=== PATIENT | female | born 1965 | race Caucasian/White ===

== ENCOUNTER 2023-12-20 06:45 | Day surgery (SDC) | payer MEDICAID, SELFPAY ==
[2023-12-20] VITALS (7 sets, daily range): BP systolic 83–119; BP diastolic 49–76; PULSE 58–76; RESP 16–18; TEMP 36.1–36.4; O2SAT 96–100; BMI 18.9
--- OUTSIDE RECORDS SUMMARY | 2023-12-20 06:49 | XMS RPT_ITS | CCD ---
Author Name Unknown Address [address] [place] [address] Organization [facility] Care Team Providers Care Maintenance Mechanic Engine Name Role Phone Rosmery Cisneros Unavailable Rosmery Cisneros Unavailable Unavailable Rosmery Cisneros Unavailable Unavailable Unavailable Unavailable Unavailable Dr. Rosmery Cisneros Attending Unavailab le Amelia, Dr. Rosmery Jones Referring Unavailab le Amelia, Dr. Rosmery Jones Primary Care Unavailab le Amelia, Dr. Rosmery Jones Attending Unavailab le Amelia, Dr. Rosmery Jones Referring Unavailab le Amelia, Dr. Rosmery Jones Primary Care Unavailab le Amelia, Dr. Rosmery Jones Primary Care Unavailab isac AGRAWAL, Dr. PRINCE WHITAKER Attending Debrava illeona Cisneros, Dr. Rosmery Jones Referring Unavailab le Amelia, Dr. Rosmery Jones Attending Unavailab le Amelia, Dr. Rosmery Jones Referring Unavailab le Amelia, Dr. Rosmery Jones Primary Care Unavailab le Amelia, Dr. Rosmery Jones Attending Unavailab le Amelia, Dr. Rosmery Jones Referring Unavailab le Amelia, Dr. Rosmery Jones Primary Care Unavailab isac AGRAWAL, Dr. PRINCE WHITAKER Attending Debrava illeona Cisneros, Dr. Rosmery Jones Primary Care Unavailab le Amelia, Dr. Rosmery Jones Attending Unavailab le Amelia, Dr. Rosmery Jones Referring Unavailab le Amelia, Dr. Rosmery Jones Primary Care Unavailab Rosmery Arce MD Primary Care Provider Rosmery Cisneros MD Primary Care Provider ROSMERY CISNEROS Attending Unavailable ROSMERY CISNEROS Referring Unavailable ROSMERY CISNEROS Primary Care Unavailable ROSMERY CISNEROS Attending Unavailable ROSMERY CISNEROS Primary Care Unavailable ROSMERY CISNEROS Attending Unavailable ROSMERY CISNEROS Primary Care Unavailable ROSMERY CISNEROS Attending Unavailable ROSMERY CISNEROS Referring Unavailable ROSMERY CISNEROS Primary Care Unavailable ROSMERY CISNEROS Attending Unavailable ROSMERY CISNEROS Primary Care Unavailable BRUNILDAAMADEO Referring Unavailable Allergies Allergy Classification Reported Allergen(s) Allergy Type Date of Onset Reaction(s) Facility Acetaminophen / oxyCODONE (4 sources) Acetaminophen / oxyCODONE; Translations: [Percocet TABS] Drug Allergy RQ-NZTC-Lngwev ke 201 Work Phone: (20 sources) Acetaminophen / oxyCODONE; Translations: [Percocet TABS] Drug Allergy [facility] (2 sources) Acetaminophen / oxyCODONE; Translations: [OXYCODONE-ACETAM INOPHEN] Drug Allergy 3 [facility] 3 Repository (1 source) chicken allergenic extract; Translations: [POULTRY] Drug Allergy 5 [facility] Repository (1 source) egg extract; Translations: [EGG] Drug Allergy 3 [facility] Repository (1 source) Shellfish; Translations: [SHELLFISH DERIVED] Propensity to adverse reactions to drug (disorder) 3 [facility] Repository (1 source) CHICKEN; Translations: [CHICKEN] Propensity to adverse reactions to food (disorder) 3 [facility] Repository Medications Current Medications Medication Drug Class(es) Dates Sig (Normalized) Sig (Original) [id number] 200 actuat albuterol 0.09 mg/actuat metered dose inhaler (20 sources) beta2-Adrenergic Agonist Start: 03-25-2023 take 2 puff(s) by inhalation every six hours for wheezing albuterol 90 mcg/actuation inhaler Indications: Routine general medical examination at a health care facility Inhale 2 puffs every 6 hours if needed for wheezing. 18 g 2 03/25/2023 Active Completed/Discontinued Medications Medication Drug Class(es) Dates Sig (Normalized) Sig (Original) azithromycin 250 mg oral tablet (4 sources) Macrolide Antimicrobial Start: 04-29-2022 Azithromycin 250 MG Oral Tablet TAKE 2 TABLETS ON DAY 1 THEN TAKE 1 TABLET A DAY FOR 4 DAYS. Quantity: 1 Refills: 0 Ordered: 29-Apr-2022 Rosmery Cisneros MD Start : 29-Apr-2022 Active betamethasone 1 mg/ml topical cream (20 sources) Corticosteroid Start: 04-29-2020 Betamethasone Valerate 0.1 % External Cream APPLY SPARINGLY TO AFFECTED AREA(S) TWICE DAILY Quantity: 1 Refills: 0 Ordered: 29-Apr-2020 Rosmery Cisneros MD Start : 29-Apr-2020 Active ciclopirox 80 mg/ml topical solution (11 sources) Start: 01-25-2022 Ciclopirox 8 % External Solution Apply to affected nail bed(s) and adjacent skin daily. Remove with alcohol every 7 days. Quantity: 1 Refills: 2 Ordered: 24-Dec-2022 Rosmery Cisneros MD Start : 25-Jan-2022 Active Problems Active Problems Problem Classification Problem Date Documented Date Episodic/Chronic Abdominal pain (18 sources) Right upper quadrant pain; Translations: [Abdominal pain, right upper quadrant] Episodic Anxiety disorders (20 sources) Mixed anxiety and depressive disorder; Translations: [Anxiety state, unspecified] Onset: 12-17-2022 Resolved: 01-28-2023 05-06-2023 Chronic Attention-deficit conduct and disruptive behavior disorders (20 sources) Attention deficit hyperactivity disorder, predominantly inattentive type; Translations: [Attention deficit disorder without mention of hyperactivity] Onset: 12-17-2022 05-06-2023 Chronic Attention-deficit, conduct, and disruptive behavior disorders (4 sources) Attention-deficit hyperactivity disorder, predominantly inattentive type; Translations: [Attention-deficit hyperactivity disorder, predominantly inattentive type] Onset: 12-17-2022 Chronic Calculus of urinary tract (20 sources) Calculus of kidney; Translations: [Recurrent kidney stone] Episodic Diseases of mouth; excluding dental (3 sources) Xerostomia; Translations: [Dry mouth, unspecified] Onset: 11-18-2023 11-18-2023 Episodic Disorders of lipid metabolism (20 sources) Hyperlipidemia; Translations: [Other and unspecified hyperlipidemia] Onset: 12-17-2022 12-17-2022 Chronic Esophageal disorders (20 sources) Gastroesophageal reflux disease; Translations: [Esophageal reflux] Onset: 12-17-2022 12-17-2022 Chronic Malaise and fatigue (3 sources) Fatigue; Translations: [Other fatigue] Onset: 11-18-2023 11-18-2023 Episodic Miscellaneous mental health disorders (7 sources) Primary insomnia; Translations: [Primary insomnia] Onset: 12-17-2022 05-06-2023 Chronic Mood disorders (20 sources) Bipolar disorder; Translations: [Bipolar disorder, unspecified] Onset: 12-17-2022 12-17-2022 Chronic Mycoses (3 sources) Onychomycosis; Translations: [Dermatophytosis of nail] Episodic Other aftercare (20 sources) Drug therapy finding; Translations: [Long-term (current) use of other medications] Episodic Other aftercare (1 source) Taking high risk medication; Translations: [Other watermaster (current) drug therapy] 11-03-2023 Episodic Other aftercare (2 sources) Other halfway (current) drug therapy; Translations: [Other watermaster (current) drug therapy] Onset: 11-03-2023 Episodic Other lower respiratory disease (3 sources) Chronic cough; Translations: [Chronic cough] Onset: 11-18-2023 11-18-2023 Episodic Other nervous system disorders (20 sources) Carpal tunnel syndrome; Translations: [Carpal tunnel syndrome] Onset: 12-17-2022 12-17-2022 Chronic Other nervous system disorders (20 sources) Paresthesia; Translations: [Disturbance of skin sensation] Episodic Other non-traumatic joint disorders (1 source) Joint pain; Translations: [Pain in unspecified joint] 11-18-2023 Episodic Other non-traumatic joint disorders (2 sources) Pain in unspecified joint; Translations: [Pain in unspecified joint] Onset: 11-18-2023 Episodic Other nutritional; endocrine; and metabolic disorders (1 source) Weight loss; Translations: [Abnormal weight loss] 11-18-2023 Episodic Other nutritional; endocrine; and metabolic disorders (3 sources) Abnormal weight loss; Translations: [Abnormal weight loss] Onset: 11-18-2023 Episodic Other screening for suspected conditions (not mental disorders or infectious disease) (20 sources) Patient encounter status; Translations: [Other screening mammogram] Onset: 08-04-2023 08-04-2023 Episodic Other upper respiratory infections (20 sources) Acute pharyngitis; Translations: [Acute pharyngitis] Onset: 11-18-2023 11-18-2023 Episodic Past or Other Problems Problem Classification Problem Date Documented Da te Episodic/Chronic Acute bronchitis (14 sources) Acute bronchitis; Translations: [Acute bronchitis] Onset: 12-17-2022 Resolved: 01-28-2023 01-28-2023 Episodic Allergic reactions (20 sources) Contact dermatitis; Translations: [Contact dermatitis and other eczema, unspecified cause] Onset: 12-17-2022 12-17-2022 Episodic Other lower respiratory disease (20 sources) Multiple nodules of lung; Translations: [Other nonspecific abnormal finding of lung field] Onset: 12-17-2022 12-17-2022 Episodic Residual codes; unclassified (20 sources) Insomnia; Translations: [Insomnia, unspecified] Onset: 12-17-2022 12-17-2022 Episodic Residual codes; unclassified (2 sources) Insomnia, unspecified; Translations: [Insomnia, unspecified] Onset: 12-17-2022 Episodic Unclassified (4 sources) Drug therapy finding; Translations: [High risk medication use] Unclassified (3 sources) Onset: 08-04-2023 08-04-2023 Viral infection (8 sources) Disease caused by 2019-nCoV; Translations: [Other specified viral infection] Onset: 12-17-2022 Resolved: 01-28-2023 01-28-2023 Episodic NEGATED: Highlighted row has not occurred!Residual codes; unclassified (20 sources) Disease Episodic Results Test Name Value Interpretation Reference Range Facil ity Vital Signs Date Time Vital Sign Value Performing Clinician Facility 11-18-2023 14:02-0500 Body height 165.1 cm Rosmery Cisneros MD Work Phone: [facility] 11-18-2023 14:02-0500 Body mass index (BMI) [Ratio] 19.85 kg/m2 Rosmery Cisneros MD Work Phone: [facility] 11-18-2023 14:02-0500 Body temperature 96.49 [degF] Rosmery Cisneros MD Work Phone: [facility] 11-18-2023 14:02-0500 Body weight 54.11 kg Rosmery Cisneros MD Work Phone: [facility] 11-18-2023 14:02-0500 Diastolic blood pressure 70 mm[Hg] Rosmery Cisneros MD Work Phone: [facility] 11-18-2023 14:02-0500 Heart rate 72 /min Rosmery Cisneros MD Work Phone: [facility] 11-18-2023 14:02-0500 Respiratory rate 16 /min Rosmery Cisneors MD Work Phone: [facility] 11-18-2023 14:02-0500 Systolic blood pressure 126 mm[Hg] Rosmery Cisneros MD Work Phone: [facility] 11-03-2023 08:49-0500 Body height 165.1 cm Rosmery Cisneros MD Work Phone: [facility] 11-03-2023 08:49-0500 Body mass index (BMI) [Ratio] 20.1 kg/m2 Rosmery Cisneros MD Work Phone: [facility] 11-03-2023 08:49-0500 Body temperature 97.7 [degF] Rosmery Cisneros MD Work Phone: [facility] 11-03-2023 08:49-0500 Body weight 54.8 kg Rosmery Cisneros MD Work Phone: [facility] 11-03-2023 08:49-0500 Diastolic blood pressure 74 mm[Hg] Rosmery Cisneros MD Work Phone: [facility] 11-03-2023 08:49-0500 Heart rate 74 /min Rosmery Cisneros MD Work Phone: [facility] 11-03-2023 08:49-0500 Respiratory rate 16 /min Rosmery Cisneros MD Work Phone: [facility] 11-03-2023 08:49-0500 Systolic blood pressure 122 mm[Hg] Rosmery Cisneros MD Work Phone: [facility] 08-04-2023 08:25-0400 Body height 165.1 cm Rosmery Cisneros MD Work Phone: [facility] 08-04-2023 08:25-0400 Body mass index (BMI) [Ratio] 22.8 kg/m2 Rosmery Cisneros MD Work Phone: [facility] 08-04-2023 08:25-0400 Body temperature 97.7 [degF] Rosmery Cisneros MD Work Phone: [facility] 08-04-2023 08:25-0400 Body weight 62.14 kg Rosmery Cisneros MD Work Phone: [facility] 08-04-2023 08:25-0400 Diastolic blood pressure 76 mm[Hg] Rosmery Cisneros MD Work Phone: [facility] 08-04-2023 08:25-0400 Heart rate 66 /min Rosmery Cisneros MD Work Phone: [facility] 08-04-2023 08:25-0400 Respiratory rate 16 /min Rosmery Cisneros MD Work Phone: [facility] 08-04-2023 08:25-0400 Systolic blood pressure 124 mm[Hg] Rosmery Cisneros MD Work Phone: [facility] 05-06-2023 08:31-0400 Body height 165.1 cm Rosmery Cisneros MD Work Phone: [facility] 05-06-2023 08:31-0400 Body mass index (BMI) [Ratio] 21.93 kg/m2 Rosmery Cisneros MD Work Phone: [facility] 05-06-2023 08:31-0400 Body temperature 96.21 [degF] Rosmery Cisneros MD Work Phone: [facility] 05-06-2023 08:31-0400 Body weight 59.78 kg Rosmery Cisneros MD Work Phone: [facility] 05-06-2023 08:31-0400 Diastolic blood pressure 66 mm[Hg] Rosmery Cisneros MD Work Phone: [facility] 05-06-2023 08:31-0400 Heart rate 60 /min Rosmery Cisneros MD Work Phone: [facility] 05-06-2023 08:31-0400 Respiratory rate 16 /min Rosmery Cisneros MD Work Phone: [facility] 05-06-2023 08:31-0400 Systolic blood pressure 124 mm[Hg] Rosmery Cisneros MD Work Phone: [facility] 10-28-2022 08:07-0500 Body height 167.64 cm Rosmery Cisneros Work Phone: GL-WNTF-Hgnsnpaf 201 Work Phone: 10-28-2022 08:07-0500 Body mass index (BMI) [Ratio] 21.67 kg/m2 Rosmery Robert Cisneros Work Phone: XI-WDVW-Uttlslmy 201 Work Phone: 10-28-2022 08:07-0500 Body surface area Derived from formula 1.69 m2 Rosmery Cisnreos Work Phone: BD-MUIJ-Btwwkqpd 201 Work Phone: 10-28-2022 08:07-0500 Body temperature 96.8 [degF] Rosmery Cisneros Work Phone: RA-IQOL-Uxfjwxfb 201 Work Phone: 10-28-2022 08:07-0500 Body weight 60.9 kg Rosmery Marinsky Work Phone: FT-GUKF-Rzyalbaf 201 Work Phone: 10-28-2022 08:07-0500 Diastolic blood pressure 90 mm[Hg] Rosmery Jones [employer] Work Phone: OJ-UYQQ-Pnvmljxf 201 Work Phone: 10-28-2022 08:07-0500 Heart rate 88 /min Rosmery Marinsky Work Phone: AG-PXRR-Nlslwqho 201 Work Phone: 10-28-2022 08:07-0500 Respiratory rate 18 /min Rosmery Marinsky Work Phone: HY-DYLE-Dqikhpgr 201 Work Phone: 10-28-2022 08:07-0500 Systolic blood pressure 150 mm[Hg] Rosmery Marinsky Work Phone: XU-VMKM-Atjmsptq 201 Work Phone: 07-29-2022 08:43-0400 Diastolic blood pressure 70 mm[Hg] Rosmery Marinsky Work Phone: JA-RVLH-Rhqxkuhf 201 Work Phone: 07-29-2022 08:43-0400 Systolic blood pressure 120 mm[Hg] Rosmery Marinsky Work Phone: FR-FQBD-Cszdkjyz 201 Work Phone: 07-29-2022 08:28-0400 Body height 167.64 cm Rosmery Marinsky Work Phone: FS-ACRJ-Uvdsumzm 201 Work Phone: 07-29-2022 08:28-0400 Body mass index (BMI) [Ratio] 21.33 kg/m2 Rosmery Cisneros Work Phone: YK-HGEK-Xrohocjb 201 Work Phone: 07-29-2022 08:28-0400 Body surface area Derived from formula 1.68 m2 Rosmery Cisneros Work Phone: MF-IPKD-Yjzwmqdb 201 Work Phone: 07-29-2022 08:28-0400 Body temperature 97.3 [degF] Rosmery Cisneros Work Phone: KS-LCYW-Dvdgtcol 201 Work Phone: 07-29-2022 08:28-0400 Body weight 59.93 kg Rosmery Cisneros Work Phone: DE-FGKY-Dwnbbokl 201 Work Phone: 07-29-2022 08:28-0400 Diastolic blood pressure 80 mm[Hg] Rosmery Cisneros Work Phone: QH-WGYL-Ezqefnjd 201 Work Phone: 07-29-2022 08:28-0400 Heart rate 72 /min Rosmery Cisneros Work Phone: BB-KAXR-Sukyfcgf 201 Work Phone: 07-29-2022 08:28-0400 Respiratory rate 18 /min Rosmery Cisneros Work Phone: WD-KWOT-Rjlynwqn 201 Work Phone: 07-29-2022 08:28-0400 Systolic blood pressure 160 mm[Hg] Rosmery Cisneros Work Phone: LB-VKEO-Wvxjpzwh 201 Work Phone: 04-29-2022 08:32-0400 Heart rate 59 /min Rosmery Noyolay Work Phone: CF-NTON-Arnmvwyk 201 Work Phone: 04-29-2022 08:32-0400 SaO2% (BldA) [Mass fraction] 98 % Rosmery Cisneros Work Phone: JL-DMDG-Yqoisxyx 201 Work Phone: 04-29-2022 08:11-0400 Body height 167.64 cm Rosmery Cisneros Work Phone: MZ-HJYE-Ncldwwsr 201 Work Phone: 04-29-2022 08:11-0400 Body mass index (BMI) [Ratio] 21.02 kg/m2 Rosmery Cisneros Work Phone: RF-UIPH-Aallufcq 201 Work Phone: 04-29-2022 08:11-0400 Body surface area Derived from formula 1.67 m2 Rosmery Cisneros Work Phone: CE-HYGV-Tvnpnsrf 201 Work Phone: 04-29-2022 08:11-0400 Body temperature 98 [degF] Rosmery Cisneros Work Phone: DF-SFVC-Ellhqwdx 201 Work Phone: 04-29-2022 08:11-0400 Body weight 59.08 kg Rosmery Cisneros Work Phone: AA-RAAL-Klkuuzkg 201 Work Phone: 04-29-2022 08:11-0400 Diastolic blood pressure 74 mm[Hg] Rosmery Cisneros Work Phone: CT-FRRU-Fptgfbkz 201 Work Phone: 04-29-2022 08:11-0400 Heart rate 72 /min Rosmery Cisneros Work Phone: ZJ-MBUD-Vktmjcpo 201 Work Phone: 04-29-2022 08:11-0400 Respiratory rate 16 /min Rosmery Cisneros Work Phone: MP-BOPU-Veiwajbc 201 Work Phone: 04-29-2022 08:11-0400 Systolic blood pressure 128 mm[Hg] Rosmery Cisneros Work Phone: SD-CTRD-Pptpuzwd 201 Work Phone: 10-28-2021 10:33-0500 Systolic blood pressure 124 mm[Hg] Rosmery Cisneros Work Phone: QS-JXVB-Xccaldrc 201 Work Phone: 10-27-2021 09:39-0500 Body height 167.64 cm Rosmery Cisneros Work Phone: XJ-WZDJ-Fsqvwuai 201 Work Phone: 10-27-2021 09:39-0500 Body mass index (BMI) [Ratio] 22.03 kg/m2 Rosmery Cisneros Work Phone: GE-OZHW-Zzspwhhf 201 Work Phone: 10-27-2021 09:39-0500 Body surface area Derived from formula 1.7 m2 Rosmery Cisneros Work Phone: LF-RIIJ-Utprnroq 201 Work Phone: 10-27-2021 09:39-0500 Body temperature 97.1 [degF] Rosmery Cisneros Work Phone: EB-KLJY-Pfaxpjgf 201 Work Phone: 10-27-2021 09:39-0500 Body weight 61.92 kg Rosmery Cisneros Work Phone: KY-REGT-Uwvbytzd 201 Work Phone: 10-27-2021 09:39-0500 Diastolic blood pressure 76 mm[Hg] Rosmery Cisneros Work Phone: SL-CKHU-Uhtnomtg 201 Work Phone: 10-27-2021 09:39-0500 Heart rate 76 /min Rosmery Cisneros Work Phone: FF-UHCQ-Lncmsumv 201 Work Phone: 10-27-2021 09:39-0500 Respiratory rate 16 /min Rosmery Cisneros Work Phone: LS-GXOF-Vtiltilz 201 Work Phone: 10-27-2021 09:39-0500 Systolic blood pressure 124 mm[Hg] Rosmery Cisneros Work Phone: KZ-TKMG-Slmtocmx 201 Work Phone: 05-29-2021 09:28-0400 Body height 167.64 cm Rosmery Cisneros Work Phone: KB-JXYL-Gutaxpbw 201 Work Phone: 05-29-2021 09:28-0400 Body mass index (BMI) [Ratio] 21.35 kg/m2 Rosmery Cisneros Work Phone: LL-DGOG-Rrbmedkt 201 Work Phone: 05-29-2021 09:28-0400 Body surface area Derived from formula 1.68 m2 Rosmery Cisneros Work Phone: BE-XSFB-Zjeoaggc 201 Work Phone: 05-29-2021 09:28-0400 Body temperature 97.3 [degF] Rosmery Cisneros Work Phone: WJ-ZCUF-Bvmvuffk 201 Work Phone: 05-29-2021 09:28-0400 Body weight 59.99 kg Rosmery Cisneros Work Phone: XE-YVRW-Ebifvpzg 201 Work Phone: 05-29-2021 09:28-0400 Diastolic blood pressure 76 mm[Hg] Rosmery Cisneros Work Phone: YC-YRUV-Uucwuwcd 201 Work Phone: 05-29-2021 09:28-0400 Heart rate 80 /min Rosmery Cisneros Work Phone: QH-DAYT-Wkgvxovl 201 Work Phone: 05-29-2021 09:28-0400 Respiratory rate 18 /min Rosmery Cisneros Work Phone: KH-JYML-Erstykpj 201 Work Phone: 05-29-2021 09:28-0400 Systolic blood pressure 130 mm[Hg] Rosmery Cisneros Work Phone: NP-CJHF-Gnrwthwz 201 Work Phone: 10-14-2020 10:34-0500 BMI (Body Mass Index) 22.33 kg/m2 Rosmery Cisneros XE-HAAJ-Eghdpyxz 201 Work Phone: 10-14-2020 10:34-0500 Body Temperature 97.6 [degF] Rosmery Cisneros JT-HHSV-Yvdwxjy e 201 Work Phone: Encounters Encounter Date Encounter Type Care Provider Facility Start: 12-14-2023 End: 12-14-2023 ambulatory [facility] Facility:[facility] Start: 11-18-2023 End: 11-18-2023 ambulatory ROSMERY Jones [facility] Start: 11-18-2023 End: 11-18-2023 Office outpatient visit 15 minutes Rosmery Cisneros MD Work Phone: [facility] Primary Care Procedures Date Procedure Procedure Detail Performing Clinician Start: 11-03-2023 SCREEN OPIATE/OPIOID /BENZO PRESCRIPTION COMPLIANCE ROSMERY CISNEROS Start: 11-03-2023 OPIATE/OPIOID/BENZO PRESCRIPTION COMPLIANCE ROSMERY CISNEROS Start: 11-03-2023 FOLLOW UP IN [facility] PRIMARY CARE - PCP ROSMERY CISNEROS Start: 05-06-2023 FOLLOW UP IN ADVANCE D PRIMARY CARE - PCP ROSMERY CISNEROS Start: 12-04-2021 End: 12-04-2021 Colonoscopy Rosmery Cisneros Work Phone: Start: 10-27-2021 Lipid 1996 panel - S georgiana or Plasma Rosmery Cisneros MD Work Phone: Start: 06-05-2021 Mammography Rosmery merchant MD Work Phone: Start: 02-04-2014 Microscopic observat ion [Identifier] in Cervix by Cyto stain Rosmery Cisneros MD Work Phone: Mouth and face operations Pa Cisneros Plan of Treatment Date Care Activity Detail Author Start: 12-04-2031 Screening for malignant neoplasm of colon [facility] Start: 10-27-2026 Lipid panel Lipid Panel [facility] Start: 01-31-2024 End: 01-31-2024 Patient encounter procedure 01/31/2024 9:00 AM EDT Office Visit [facility] [address] [facility] [address] [place] [id number] Shubham Rg, BLOOD BANK BUSINESS MANAGER-INSPECTOR TOOL [address] [facility] [address] [place] [address] [facility] Start: 11-18-2023 End: 05-18-2024 25-hydroxyvitamin D3 [Mass/volume] in Serum or Plasma Vitamin D 25-Hydroxy,Total (for eval of Vitamin D levels) Lab Routine Arthralgia, unspecified joint Expected: 11/18/2023 (Approximate), Expires: 05/18/2024 [facility] Work Phone: Immunizations Immunization Date Immunization Notes Care Provider Fa cility 03-21-2021 Moderna COVID-19 Vaccine 100 MCG/0.5ML Intramuscular Suspension Rosmery Cisneros Work Phone: [facility] 02-21-2021 Moderna COVID-19 Vaccine 100 MCG/0.5ML Intramuscular Suspension Rosmery Cisneros Work Phone: [facility] 05-04-2016 hepatitis A vaccine, adult dosage; Translations: [Hepatitis A, adult] Rosmery Cisneros AM-QYAJ-Rqatvpiz Work Phone: Payers Date Payer Category Payer Unknown [id number] 2022 Unknown 2022 Unknown [id number] 1965 Unknown [id number] 2.16. [id number] 1965 Unknown [id number] 2.16. [id number] 1963 Unknown [id number] 2.16. [id number] 1963 Unknown [id number] 2.16. [id number] 1965 Unknown [id number] 2.16. [id number] 1963 Unknown [id number] 2.16. [id number] 1965 Unknown [id number] 2.16. [id number] 1963 Unknown [id number] 2.16.8 [id number] 1963 Unknown [id number] 2.16.84 [id number] 1963 Unknown [id number] 1965 Unknown [id number] 2.16.8 [id number] 1965 Unknown [id number] 2.16.8 [id number] Social History Date Type Detail Facility Start: 05-06-2023 End: 11-03-2023 Occasional alcohol use Occasional alcohol use DJ-VUYW-Zmntnw ke 201 Work Phone: Functional Status Date Assessment Result Facility NEGATED: Highlighted row Functional performance Functional status health issues are not documented Disease DL-TIMB-Zewziyoi 201 Work Phone: Mental Status Date Assessment Result Facility NEGATED: Highlighted row Cognitive function [Interpretation] Cognitive status health issues are not documented Disease OB-EWDL-Fzzfdlzv 201 Work Phone: Clinical Notes 10-14-2020 to 11-18-2023 Rosmery Cisneros MD - 11/18/2023 1:30 PM Farhan Cisneros MD - 11/03/2023 8:30 AM Farhan Cisneros MD - 08/04/2023 8:20 AM EDTMconsuelo Cisneros MD - 05/06/2023 8:20 AM EDT Note Date & Type Note Facility 11-18-2023 History of Present illness Narrative Subjective Patient ID: Julianna Dan is a 58 y.o. female who presents for hands cold dry eyes ?Sjogren's Weight loss 20 pounds in 6 weeks eating less amount due to throat is hurting and hurts to swallow last 7-8 weeks Having some heartburn Saw combination man who took off lesion Electric pain upper back and lower back Stopped drink 7-8 months ago Has had a headache for 2 years dry mouth joints pain knees ankles wrists hands Hx cyst ovary removed on right Had abscess right groin lanced it herself front mouth sore Review of Systems Objective BP 126/70 Pulse 72 Temp 35.8 C (96.5 F) (Temporal) Resp 16 Ht 1.651 m (5' 5 ) Wt 54.1 kg (119 lb 4.8 oz) BMI 19.85 kg/m Physical Exam Vitals and nursing note reviewed. Constitutional: General: She is not in acute distress. Appearance: She is not ill-appearing. HENT: Head: Normocephalic and atraumatic. Mouth/Throat: Mouth: Mucous membranes are moist. Pharynx: No oropharyngeal exudate or posterior oropharyngeal erythema. Eyes: Conjunctiva/sclera: Conjunctivae normal. Cardiovascular: Rate and Rhythm: Normal rate and regular rhythm. Heart sounds: Normal heart sounds. Pulmonary: Effort: Pulmonary effort is normal. Breath sounds: Normal breath sounds. Skin: General: Skin is warm. Neurological: Mental Status: She is alert. Psychiatric: Mood and Affect: Mood normal. Thought Content: Thought content normal. Judgment: Judgment normal. Assessment/Plan Problem List Items Addressed This Visit ICD-10-CM GERD (gastroesophageal reflux disease) K21.9 Relevant Orders Referral to Gastroenterology Other Visit Diagnoses Codes Weight loss - Primary R63.4 Relevant Orders CBC Comprehensive Metabolic Panel TSH with reflex to Free T4 if abnormal Arthralgia, unspecified joint M25.50 Relevant Orders JANET without Reflex TANK Citrulline Antibody, IgG C-Reactive Protein Rheumatoid Factor Sedimentation Rate Vitamin D 25-Hydroxy,Total (for eval of Vitamin D levels) Fatigue, unspecified type R53.83 Relevant Orders Vitamin B12 Folate Dry mouth R68.2 Relevant Orders Anti-SSA Anti-SSB Sore throat J02.9 Relevant Orders Referral to ENT Chronic cough R05.3 Relevant Orders XR chest 2 views documented in this encounter [facility] Work Phone: 11-03-2023 History of Present illness Narrative Subjective Patient ID: Julianna Dan is a 58 y.o. female who presents for ADHD (Patient here for med refills of her Adderall. Patient is due for a Tox screen, CSA was 05/06/23 Patient states has not taken the Adderall for 2 months. She feels she is doing ok without the medication. ) and Med Refill (Patient needs Xanax and Ambien scripts as well. Due for Tox. CSA was .. ). Stopped Adderall 2 months and is doing well not taking Xanax as much changed diet and lost weight OARRS: Rsomery Cisneros MD on 11/03/2023 8:38 AM I have personally reviewed the OARRS report for Julianna Dan. I have considered the risks of abuse, dependence, addiction and diversion Is the patient prescribed a combination of a benzodiazepine and opioid? No Last Urine Drug Screen / ordered today: Yes No results found for this or any previous visit (from the past 8760 hour(s)). Results are as expected. Clinical rationale for not completing a Urine Drug Screen: done Controlled Substance Agreement: Date of the Last Agreement: 04/2023 Reviewed Controlled Substance Agreement including but not limited to the benefits, risks, and alternatives to treatment with a Controlled Substance medication(s). Benzodiazepines: What is the patient's goal of therapy? anxiety Is this being achieved with current treatment? yes GAVIOTA-7: Over the last 2 weeks, how often have you been bothered by any of the following problems? Feeling nervous, anxious, or on edge: 1 Not being able to stop or control worryin Worrying too much about different things: 2 Trouble relaxin Being so restless that it is hard to sit still: 1 Becoming easily annoyed or irritable: 0 Feeling afraid as if something awful might happen: 0 GAVIOTA-7 Total Score: 8 Activities of Daily Living: Is your overall impression that this patient is benefiting (symptom reduction outweighs side effects) from benzodiazepine therapy? Yes 1. Physical Functioning: Better 2. Family Relationship: Better 3. Social Relationship: Better 4. Mood: Better 5. Sleep Patterns: Better 6. Overall Function: Better and Sleep Aids: What is the patient's goal of therapy? slepp Is this being achieved with current treatment? yes Activities of Daily Living: Is your overall impression that this patient is benefiting (symptom reduction outweighs side effects) from sleep aid therapy? Yes 1. Physical Functioning: Better 2. Family Relationship: Better 3. Social Relationship: Better 4. Mood: Better 5. Sleep Patterns: Better 6. Overall Function: Better Review of Systems Objective BP 122/74 Pulse 74 Temp 36.5 C (97.7 F) Resp 16 Ht 1.651 m (5' 5 ) Wt 54.8 kg (120 lb 12.8 oz) BMI 20.10 kg/m Physical Exam Vitals and nursing note reviewed. Constitutional: General: She is not in acute distress. Appearance: She is not ill-appearing. HENT: Head: Normocephalic and atraumatic. Mouth/Throat: Mouth: Mucous membranes are moist. Eyes: Conjunctiva/sclera: Conjunctivae normal. Cardiovascular: Rate and Rhythm: Normal rate and regular rhythm. Heart sounds: Normal heart sounds. Pulmonary: Effort: Pulmonary effort is normal. Breath sounds: Normal breath sounds. Skin: General: Skin is warm. Neurological: Mental Status: She is alert. Psychiatric: Mood and Affect: Mood normal. Thought Content: Thought content normal. Judgment: Judgment normal. Assessment/Plan Problem List Items Addressed This Visit ICD-10-CM ADHD, predominantly inattentive type F90.0 GERD (gastroesophageal reflux disease) K21.9 Relevant Medications pantoprazole (ProtoNix) 40 mg EC tablet Hyperlipidemia E78.5 Relevant Medications atorvastatin (Lipitor) 10 mg tablet Other Relevant Orders Lipid Panel CBC Comprehensive Metabolic Panel Insomnia G47.00 Relevant Medications zolpidem (Ambien) 10 mg tablet Anxiety - Primary F41.9 Relevant Medications ALPRAZolam (Xanax) 0.5 mg tablet documented in this encounter [facility] Work Phone: 08-04-2023 History of Present illness Narrative Subjective Patient ID: Julianna Dan is a 58 y.o. female who presents for Med Refill (Patient here for 3 month refills of her Xanax, Ambien, Adderall. Last Tox screen was 10-28-22 and CSA was 05/06/23). HPI OARRS: Rosmery Cisneros MD on 08/04/2023 8:36 AM I have personally reviewed the OARRS report for Julianan Dan. I have considered the risks of abuse, dependence, addiction and diversion Is the patient prescribed a combination of a benzodiazepine and opioid? No Last Urine Drug Screen / ordered today: No Recent Results (from the past 8760 hour(s)) Amphetamine Confirm, Urine Collection Time: 10/28/22 12:00 AM Result Value Ref Range Amphetamines,Urine >5000 ng/mL MDA, Urine <200 ng/mL MDEA, Urine <200 ng/mL MDMA, Urine <200 ng/mL Methamphetamine Quant, Ur <200 ng/mL Phentermine,Urine <200 ng/mL OPIATE/OPIOID/BENZO PRESCRIPTION COMPLIANCE Collection Time: 10/28/22 12:00 AM Result Value Ref Range DRUG SCREEN COMMENT URINE SEE BELOW Creatine, Urine 242.1 mg/dL Amphetamine Screen, Urine PRESUMPTIVE POSITIVE (A) NEGATIVE Barbiturate Screen, Urine PRESUMPTIVE NEGATIVE NEGATIVE Cannabinoid Screen, Urine PRESUMPTIVE NEGATIVE NEGATIVE Cocaine Screen, Urine PRESUMPTIVE NEGATIVE NEGATIVE PCP Screen, Urine PRESUMPTIVE NEGATIVE NEGATIVE 7-Aminoclonazepam <25 Cutoff <25 ng/mL Alpha-Hydroxyalprazolam 812 (A) Cutoff <25 ng/mL Alpha-Hydroxymidazolam <25 Cutoff <25 ng/mL Alprazolam 109 (A) Cutoff <25 ng/mL Chlordiazepoxide <25 Cutoff <25 ng/mL Clonazepam <25 Cutoff <25 ng/mL Diazepam <25 Cutoff <25 ng/mL Lorazepam <25 Cutoff <25 ng/mL Midazolam <25 Cutoff <25 ng/mL Nordiazepam <25 Cutoff <25 ng/mL Oxazepam <25 Cutoff <25 ng/mL Temazepam <25 Cutoff <25 ng/mL Zolpidem 93 (A) Cutoff <25 ng/mL Zolpidem Metabolite (ZCA) >1000 (A) Cutoff <25 ng/mL 6-Acetylmorphine <25 Cutoff <25 ng/mL Codeine <50 Cutoff <50 ng/mL Hydrocodone <25 Cutoff <25 ng/mL Hydromorphone <25 Cutoff <25 ng/mL Morphine Urine <50 Cutoff <50 ng/mL Norhydrocodone <25 Cutoff <25 ng/mL Noroxycodone <25 Cutoff <25 ng/mL Oxycodone <25 Cutoff <25 ng/mL Oxymorphone <25 Cutoff <25 ng/mL Tramadol <50 Cutoff <50 ng/mL O-Desmethyltramadol <50 Cutoff <50 ng/mL Fentanyl <2.5 Cutoff<2.5 ng/mL Norfentanyl <2.5 Cutoff<2.5 ng/mL METHADONE CONFIRMATION,URINE <25 Cutoff <25 ng/mL EDDP <25 Cutoff <25 ng/mL Results are as expected. Controlled Substance Agreement: Date of the Last Agreement: April 2023 Reviewed Controlled Substance Agreement including but not limited to the benefits, risks, and alternatives to treatment with a Controlled Substance medication(s). Benzodiazepines: What is the patient's goal of therapy? anxiety Is this being achieved with current treatment? yes GAVIOTA-7: Over the last 2 weeks, how often have you been bothered by any of the following problems? Feeling nervous, anxious, or on edge: 2 Not being able to stop or control worryin Worrying too much about different things: 2 Trouble relaxin Being so restless that it is hard to sit still: 1 Becoming easily annoyed or irritable: 2 Feeling afraid as if something awful might happen: 0 GAVIOTA-7 Total Score: 10 Activities of Daily Living: Is your overall impression that this patient is benefiting (symptom reduction outweighs side effects) from benzodiazepine therapy? Yes 1. Physical Functioning: Better 2. Family Relationship: Better 3. Social Relationship: Better 4. Mood: Better 5. Sleep Patterns: Better 6. Overall Function: Better, Stimulants: What is the patient's goal of therapy? concentration Is this being achieved with current treatment? yes Activities of Daily Living: Is your overall impression that this patient is benefiting (symptom reduction outweighs side effects) from stimulant therapy? Yes 1. Physical Functioning: Better 2. Family Relationship: Better 3. Social Relationship: Better 4. Mood: Better 5. Sleep Patterns: Better 6. Overall Function: Better , and Sleep Aids: What is the patient's goal of therapy? sleep Is this being achieved with current treatment? yes Activities of Daily Living: Is your overall impression that this patient is benefiting (symptom reduction outweighs side effects) from sleep aid therapy? Yes 1. Physical Functioning: Better 2. Family Relationship: Better 3. Social Relationship: Better 4. Mood: Better 5. Sleep Patterns: Better 6. Overall Function: Better Review of Systems Objective BP 124/76 Pulse 66 Temp 36.5 C (97.7 F) Resp 16 Ht 1.651 m (5' 5 ) Wt 62.1 kg (137 lb) BMI 22.80 kg/m Physical Exam Vitals and nursing note reviewed. Constitutional: General: She is not in acute distress. Appearance: She is not ill-appearing. HENT: Head: Normocephalic and atraumatic. Mouth/Throat: Mouth: Mucous membranes are moist. Eyes: Conjunctiva/sclera: Conjunctivae normal. Cardiovascular: Rate and Rhythm: Normal rate and regular rhythm. Heart sounds: Normal heart sounds. Pulmonary: Effort: Pulmonary effort is normal. Breath sounds: Normal breath sounds. Skin: General: Skin is warm. Neurological: Mental Status: She is alert. Psychiatric: Mood and Affect: Mood normal. Thought Content: Thought content normal. Judgment: Judgment normal. Assessment/Plan Problem List Items Addressed This Visit ADHD, predominantly inattentive type - Primary Relevant Medications amphetamine-dextroamphetamine (Adderall) 30 mg tablet Other Relevant Orders Follow Up In [facility] - PCP - Established Insomnia Relevant Medications zolpidem (Ambien) 10 mg tablet Anxiety Relevant Medications ALPRAZolam (Xanax) 0.5 mg tablet Other Visit Diagnoses Screening mammogram, encounter for Relevant Orders BI mammo bilateral screening tomosynthesis documented in this encounter [facility] Work Phone: 05-06-2023 History of Present illness Narrative OARRS: Rosmery Cisneros MD on 05/06/2023 8:39 AM I have personally reviewed the OARRS report for Julianna Dan. I have considered the risks of abuse, dependence, addiction and diversion Is the patient prescribed a combination of a benzodiazepine and opioid? No Last Urine Drug Screen / ordered today: No Recent Results (from the past 77448 hour(s)) Amphetamine Confirm, Urine Collection Time: 10/28/22 12:00 AM Result Value Ref Range Amphetamines,Urine >5000 ng/mL MDA, Urine <200 ng/mL MDEA, Urine <200 ng/mL MDMA, Urine <200 ng/mL Methamphetamine Quant, Ur <200 ng/mL Phentermine,Urine <200 ng/mL OPIATE/OPIOID/BENZO PRESCRIPTION COMPLIANCE Collection Time: 10/28/22 12:00 AM Result Value Ref Range DRUG SCREEN COMMENT URINE SEE BELOW Creatine, Urine 242.1 mg/dL Amphetamine Screen, Urine PRESUMPTIVE POSITIVE (A) NEGATIVE Barbiturate Screen, Urine PRESUMPTIVE NEGATIVE NEGATIVE Cannabinoid Screen, Urine PRESUMPTIVE NEGATIVE NEGATIVE Cocaine Screen, Urine PRESUMPTIVE NEGATIVE NEGATIVE PCP Screen, Urine PRESUMPTIVE NEGATIVE NEGATIVE 7-Aminoclonazepam <25 Cutoff <25 ng/mL Alpha-Hydroxyalprazolam 812 (A) Cutoff <25 ng/mL Alpha-Hydroxymidazolam <25 Cutoff <25 ng/mL Alprazolam 109 (A) Cutoff <25 ng/mL Chlordiazepoxide <25 Cutoff <25 ng/mL Clonazepam <25 Cutoff <25 ng/mL Diazepam <25 Cutoff <25 ng/mL Lorazepam <25 Cutoff <25 ng/mL Midazolam <25 Cutoff <25 ng/mL Nordiazepam <25 Cutoff <25 ng/mL Oxazepam <25 Cutoff <25 ng/mL Temazepam <25 Cutoff <25 ng/mL Zolpidem 93 (A) Cutoff <25 ng/mL Zolpidem Metabolite (ZCA) >1000 (A) Cutoff <25 ng/mL 6-Acetylmorphine <25 Cutoff <25 ng/mL Codeine <50 Cutoff <50 ng/mL Hydrocodone <25 Cutoff <25 ng/mL Hydromorphone <25 Cutoff <25 ng/mL Morphine Urine <50 Cutoff <50 ng/mL Norhydrocodone <25 Cutoff <25 ng/mL Noroxycodone <25 Cutoff <25 ng/mL Oxycodone <25 Cutoff <25 ng/mL Oxymorphone <25 Cutoff <25 ng/mL Tramadol <50 Cutoff <50 ng/mL O-Desmethyltramadol <50 Cutoff <50 ng/mL Fentanyl <2.5 Cutoff<2.5 ng/mL Norfentanyl <2.5 Cutoff<2.5 ng/mL METHADONE CONFIRMATION,URINE <25 Cutoff <25 ng/mL EDDP <25 Cutoff <25 ng/mL Results are as expected. Controlled Substance Agreement: Date of the Last Agreement: today Reviewed Controlled Substance Agreement including but not limited to the benefits, risks, and alternatives to treatment with a Controlled Substance medication(s). Benzodiazepines: What is the patient's goal of therapy? anxiety Is this being achieved with current treatment? yes GAVIOTA-7: Over the last 2 weeks, how often have you been bothered by any of the following problems? Feeling nervous, anxious, or on edge: 3 Not being able to stop or control worryin Worrying too much about different things: 3 Trouble relaxin Being so restless that it is hard to sit still: 3 Becoming easily annoyed or irritable: 3 Feeling afraid as if something awful might happen: 1 GAVIOTA-7 Total Score: 19 Activities of Daily Living: Is your overall impression that this patient is benefiting (symptom reduction outweighs side effects) from benzodiazepine therapy? Yes 1. Physical Functioning: Better 2. Family Relationship: Better 3. Social Relationship: Better 4. Mood: Better 5. Sleep Patterns: Better 6. Overall Function: Better, Stimulants: What is the patient's goal of therapy? concentration Is this being achieved with current treatment? yes Activities of Daily Living: Is your overall impression that this patient is benefiting (symptom reduction outweighs side effects) from stimulant therapy? Yes 1. Physical Functioning: Better 2. Family Relationship: Better 3. Social Relationship: Better 4. Mood: Better 5. Sleep Patterns: Better 6. Overall Function: Better , and Sleep Aids: What is the patient's goal of therapy? sleep Is this being achieved with current treatment? yes Activities of Daily Living: Is your overall impression that this patient is benefiting (symptom reduction outweighs side effects) from sleep aid therapy? Yes 1. Physical Functioning: Better 2. Family Relationship: Better 3. Social Relationship: Better 4. Mood: Better 5. Sleep Patterns: Better 6. Overall Function: Better Subjective Patient ID: Julianna Dan is a 57 y.o. female who presents for Follow-up (Last dose alprazolam 05/05/23 , zolpidem 05/05/23, hunt not taken amphetamine dextroamphetamine for apox 1 month CSA / urine 10/28/22). HPI Review of Systems Objective BP 124/66 (BP Location: Right arm, Patient Position: Sitting, BP Cuff Size: Adult) Pulse 60 Temp 35.7 C (96.2 F) (Temporal) Resp 16 Ht 1.651 m (5' 5 ) Wt 59.8 kg (131 lb 12.8 oz) BMI 21.93 kg/m Physical Exam Vitals and nursing note reviewed. Constitutional: General: She is not in acute distress. Appearance: She is not ill-appearing. HENT: Head: Normocephalic and atraumatic. Mouth/Throat: Mouth: Mucous membranes are moist. Eyes: Conjunctiva/sclera: Conjunctivae normal. Cardiovascular: Rate and Rhythm: Normal rate and regular rhythm. Heart sounds: Normal heart sounds. Pulmonary: Effort: Pulmonary effort is normal. Breath sounds: Normal breath sounds. Skin: General: Skin is warm. Neurological: Mental Status: She is alert. Psychiatric: Mood and Affect: Mood normal. Thought Content: Thought content normal. Judgment: Judgment normal. Assessment/Plan Problem List Items Addressed This Visit ADHD, predominantly inattentive type Relevant Medications amphetamine-dextroamphetamine (Adderall) 30 mg tablet Insomnia Relevant Medications zolpidem (Ambien) 10 mg tablet Anxiety Relevant Medications ALPRAZolam (Xanax) 0.5 mg tablet documented in this encounter [facility] Work Phone: 05-06-2023 Instructions Rosmery Cisneros MD - 05/06/2023 8:20 AM EDT Fats in the Diet: Good and Bad Recommendations for a Healthy Diet Are all fats bad? Not all fat is bad. Some fat in the diet is needed for good health. Fat provides calories, which give you energy. Fat is used by your body to make hormonelike substances that control blood pressure and other heart functions. Fat helps the body absorb fat-soluble nutrients such as vitamins A, D, E, and K. Certain antioxidants are also absorbed much better if fat is present. (Antioxidants help keep the body's cells healthy.) Some fats found in plant oils and fish can help prevent chronic disease. In addition, fats and oils add flavor, aroma, and texture to food, helping it taste good. Most fats are found in meat, poultry, fish, dairy products, plant oils, and processed foods. One problem with all fats is that they are very high in calories (9 calories per gram as compared to 4 calories per gram in carbohydrates and protein). Eating more calories than your body can use causes weight gain. Weight gain increases your risk for developing health problems. These health problems include high blood pressure, high cholesterol, type 2 diabetes, heart disease, stroke, cancer, gallstones, and gout. Which fats are the bad fats? Harmful fats include saturated and trans fats. Experts recommend that the saturated fat in your daily diet provide no more than 10% of your total calories. Also, you should keep trans fats as low as possible. Saturated fats are found mainly in animal products such as meats; poultry (mostly in dark meat and skin); whole and partially skimmed dairy products, including milk, cheese, ice cream, butter, and sour cream; and lard. Eating too much saturated fat is strongly related to higher cholesterol levels. Meals high in these fats can also cause sudden increases in triglycerides and other blood fats. This, in turn, decreases blood flow through the arteries and heart. Trans fats can be found naturally in some animal products, but most of the trans fats in our diet are manufactured from polyunsaturated oils. The process is called hydrogenation. It is done to keep fat from going rancid and to change the form of the fat from a liquid to a solid. Hydrogenated fats are used in stick margarine, processed foods, and many commercially baked and fast foods such as ice cream, cakes, cookies, chips, shortening, popcorn, and [place] fries. Hydrogenated fats (trans fats) may be even more dangerous for the heart than naturally occurring saturated fats and may be associated with some cancers. Food manufacturers must now list the amount of trans fats, along with saturated fat, on the Nutrition Facts label of packaged foods. Tropical oils (palm, coconut, and cocoa butter) are also high in saturated fat, but it is not known if these fats have a harmful effect on the heart. What is cholesterol? Cholesterol is a fatty substance that has both good and bad effects on the body. Your body uses cholesterol to make hormones and to build and maintain nerve cells. However, when your body has too much cholesterol, deposits of fat called plaque form inside blood vessel villalpando. The blood vessel villalpando thicken and the vessels become narrower (a condition called atherosclerosis). This change in the blood vessels reduces blood flow through the blood vessels, possibly leading to heart attacks or strokes. You can get cholesterol by eating animal products such as meat, eggs, and dairy products. However, cholesterol is not an essential part of the diet because your liver makes cholesterol from other nutrients you eat (fats, carbohydrates, and proteins). Eating a diet low in saturated fat and cholesterol can help lower high blood cholesterol and improve the blood flow through your arteries. A low-fat diet and regular exercise will help decrease your risk of heart attack and stroke. It can also help you lose weight if you are overweight. Which fats are good fats? Polyunsaturated and monounsaturated fats are good or beneficial fats and oils. Some of these fats are considered essential, meaning that they are necessary for health. Polyunsaturated fats are found mostly in fish and plant oils such as safflower, corn, soybean, sunflower, and cottonseed. Monounsaturated fats are found mainly in canola, olive, and peanut oils, as well as most nuts. Recently a lot of attention has been given to some of the fatty acids that make up poly and monounsaturated fats. Three very important fatty acids are called omega-3, omega-6, and omega-9. [place]-3 fatty acids are found in fish and some plants. They are good for heart health. They may reduce the risk of stroke, high blood pressure, and other chronic disease. Good sources are oily fish such as salmon, mackerel and tuna. Good plant sources for omega-3 fatty acids are canola oil, soybeans, flaxseed and certain nuts (especially walnuts and almonds). [place]-6 fatty acid is found in corn, safflower, soybean, and sunflower oils. [place]-9 fatty acid is found in olive oil and canola oil. Getting some of these good fats is healthful, but many Americans eat too much and become overweight. It is likely that the balance of fatty acids is very important. The [place] diet typically contains too much omega-6 fatty acid and not enough omega-3 fatty acid. How much fat do I need in my diet? The Dietary Guidelines for Americans recommend that you: Get no more than 20 to 35% of your total calories from fat. Get less than 10% of your calories from saturated fat. For example, if you eat 2000 calories a day, you should eat no more than 20 grams (g) of saturated fat. If you have heart disease, less than 7% of your calories should be from saturated fat. Avoid or limit trans fats (often found in processed foods). Eat less than 300 milligrams (mg) of cholesterol per day (less than 200 mg if you have heart disease). How can I cut down on the fat in my diet? You can cut down on the fat in your diet by eating fewer high-fat animal products, such as red meat, poultry with skin, whole-milk dairy products, and fried foods. Be aware that even healthy fats, such as oils, nuts, seeds, and avocado, are high in calories and should be eaten in limited amounts. Eat more fruits, vegetables, and whole grains. Start thinking about eating less fat when you shop for groceries. Try to follow these suggestions: Read food labels. Choose sour cream, cream cheese, cheese, yogurt, and milk products that are nonfat or low fat. Replace butter and margarine with canola or olive oil, which are healthier fats. Choose fats and oils that contain less than 2 g of saturated fat per tablespoon. Continue to watch your portion size because all fats are high in calories. Buy only lean cuts of meat, such as poultry breast without skin; pork tenderloin; flank, round or sirloin beef; and low-sodium ham. Cook lean. Bake, broil, grill, steam, microwave, and saut foods instead of frying them. Have a meatless dinner a few times a week. Beans are a great alternative to meat. Use low-fat or fat-free salad dressings. Try a flavored vinegar on your salad. It contains no fat and has lots of flavor. Try to have cookies and desserts only as a special treat, not every day. Prepare baked desserts at home, using healthy oils, egg whites, and fruit purees. Steam vegetables with herbs in the microwave, or saut them in a small amount of healthy oil or cooking spray, instead of cooking them with butter. Avoid trans fats by choosing fewer processed foods and checking labels for saturated fat and trans fat content. Eat fish at least 2 times a week (not fried). Fast food can be very high in total and saturated fat. Try not to eat a lot of it, and choose grilled chicken or a salad with fat-free or low-fat dressing. Ask for nutrition information brochures from fast-food restaurants so that you can choose wisely. For a healthy snack, choose fresh fruits or yogurt instead of high-fat fried snack. documented in this encounter [facility] Work Phone: 10-28-2022 History of Present illness Narrative I have personally reviewed the OARRS report for JULIANNA DAN. I have considered the risks of abuse, dependence, addiction and diversion.Is the patient prescribed a combination of a benzodiazepine and opioid? No.Last urine drug screening date/ordered today: 10/28/22Results of last screen: Results as expected.Controlled Substance Agreement:I have printed this form and reviewed each line item with the patient and the patient has verbalized understanding.Date of the last Controlled Substance Agreement: 10/28/22BENZODIAZEPINESWhat is the patient s goal of therapy? anxiety.Is this being achieved with current treatment? yes.GAVIOTA-71. Feeling nervous, anxious or on edge- more than half the days2. Not being able to stop or control worrying - more than half the days3. Worrying too much about different things - more than half the days4. Trouble relaxing - more than half the days5. Being so restless that it is hard to sit still - more than half the days6. Becoming easily annoyed or irritable - more than half the days7. Feeling afraid as if something awful might happen - more than half the daysTotal Score = 14Activities of Daily Living:Physical functioning: SameFamily relationships: SameSocial relationships: SameMood: SameSleep patterns: SameOverall functioning: SameSTIMULANTSWhat is the patient s goal of therapy? concentration.Is this being achieved with current treatment? yes.Activities of Daily Living:Yes, it is my opinion that this patient is benefitting from stimulant therapy .Physical functioning: SameFamily relationships: SameSocial relationships: SameMood: SameSleep patterns: SameOverall functioning: SameSLEEP AIDSWhat is the patient s goal of therapy? sleep.Is this being achieved with current treatment? yes.Activities of Daily Living:Yes, it is my opinion that this patient is benefitting from sleep aid therapy .Physical functioning: SameFamily relationships: SameSocial relationships: SameMood: SameSleep patterns: SameOverall functioning: Same [employer] Work Phone: 10-06-2022 Chief complaint Narrative - Reported An interactive audio and video telecommunication system which permits real time communications between the patient (at the originating site) and provider (at the distant site) was utilized to provide this telehealth service.Verbal consent was requested and obtained from JULIANNA DAN on this date, 10/06/2022 10:10 AM , for a telehealth visit.tested positive for covid todayTime spent with patient was 5 minutes which included obtaining history, counselling and coordination of care, ordering and reviewing tests and documentation in medical records.The patient was located at home [employer] Work Phone: 12-30-2021 History of Present illness Narrative JULIANNA DAN presents with complaints of gradual onset of constant episodes of mild right ear pain, described as dull. Episodes started about 4 months ago.Associated symptoms include ear drainage, ear pruritus, nasal congestion, cough, swollen glands, facial pain, dental pain, headache, tinnitus, vertigo, loss of balance and temporomandibular joint pain, but no ear plugging, no ear pressure, no fever, no sore throat and no nausea.I have personally reviewed the OARRS report for JULIANNA DAN. I have considered the risks of abuse, dependence, addiction and diversion.Is the patient prescribed a combination of a benzodiazepine and opioid? No.Last urine drug screening date/ordered today: 10/27/21Date of the last Controlled Substance Agreement: 10/27/21BENZODIAZEPINESGAD-71. Feeling nervous, anxious or on edge- more than half the days2. Not being able to stop or control worrying - more than half the days3. Worrying too much about different things - more than half the days4. Trouble relaxing - more than half the days5. Being so restless that it is hard to sit still - more than half the days6. Becoming easily annoyed or irritable - more than half the days7. Feeling afraid as if something awful might happen - several daysTotal Score = 13STIMULANTSWhat is the patient s goal of therapy? concentration.Is this being achieved with current treatment? yes.Activities of Daily Living:Yes, it is my opinion that this patient is benefitting from stimulant therapy .Physical functioning: SameFamily relationships: SameSocial relationships: SameMood: SameSleep patterns: SameOverall functioning: SameANN SY presents with complaints of gradual onset of constant episodes of mild wheezing. Episodes started about 5 weeks ago.Associated symptoms include expiratory wheezing, nocturnal wheezing, dyspnea, cough, rhinorrhea, chest congestion and anxiety.started in January jaw started to swell and crack feels TMJ, jaw feels off, started after deep teeth cleaning and started to wheeze felt heart racing so stopped Adderall which helped coughing clear, phlegm mucouswheezing exhales in the morninghit ribs left side which made wheezing worse in March was more tired using inhaler which helps ?rib fracturewants to avoid tests due to coughrib and TMJ still feels swollen [facility] Work Phone: 10-27-2021 History of Present illness Narrative Last urine drug screening date/ordered today: 10/27/21Date of the last Controlled Substance Agreement: ENZODIAZEPINESGAD-71. Feeling nervous, anxious or on edge- more than half the days2. Not being able to stop or control worrying - more than half the days3. Worrying too much about different things - more than half the days4. Trouble relaxing - more than half the days5. Being so restless that it is hard to sit still - nearly every day6. Becoming easily annoyed or irritable - more than half the days7. Feeling afraid as if something awful might happen - several daysTotal Score = 14 [employer] Work Phone: 09-30-2021 History of Present illness Narrative The patient is being seen for an initial evaluation of headaches. Symptoms: nausea, photophobia and phonophobiaThe patient presents with complaints of gradual onset of constant episodes of severe bilateral frontal and bilateral temporal headache, described as throbbing. Episodes started about 6 days ago. She is currently experiencing headache. The patient is currently experiencing symptoms. Pain scores include a current pain level of 7/10, an average pain level of 0/10, a minimum pain level of 0/10 and a maximum pain level of 7/10. Associated symptoms: nasal congestion, rhinorrhea and ST this am , light yellow expectorant.got sick Tuesday morning got headache pounding cough yellow no fever [facility] Work Phone: 10-14-2020 History of Present illness Narrative I have personally reviewed the OARRS report for JULIANNA DAN. I have considered the risks of abuse, dependence, addiction and diversion.Is the patient prescribed a combination of a benzodiazepine and opioid? No.Last urine drug screening date/ordered today: 10/14/2020Results of last screen: Results as expected.Controlled Substance Agreement:I have printed this form and reviewed each line item with the patient and the patient has verbalized understanding.Date of the last Controlled Substance Agreement: 10/14/2020BENZODIAZEPINESGAD-71. Feeling nervous, anxious or on edge- more than half the days2. Not being able to stop or control worrying - more than half the days3. Worrying too much about different things - several days4. Trouble relaxing - several days5. Being so restless that it is hard to sit still - several days6. Becoming easily annoyed or irritable - more than half the days7. Feeling afraid as if something awful might happen - more than half the daysTotal Score = 11STIMULANTSWhat is the patient s goal of therapy? concentration.Is this being achieved with current treatment? yes.Activities of Daily Living:Yes, it is my opinion that this patient is benefitting from stimulant therapy .Physical functioning: SameFamily relationships: SameSocial relationships: SameMood: SameSleep patterns: SameOverall functioning: SameSLEEP AIDSWhat is the patient s goal of therapy? sleep.Is this being achieved with current treatment? yes.Activities of Daily Living:Yes, it is my opinion that this patient is benefitting from sleep aid therapy .Physical functioning: SameFamily relationships: SameSocial relationships: SameMood: SameSleep patterns: SameOverall functioning: Viola DAN presents with complaints of gradual onset of constant episodes of mild right arm rash. Her symptoms are caused by no known event. Symptoms are improving.Associated symptoms include pruritus and skin redness, but no crusting, no skin dryness, no skin swelling, no skin weeping, no nausea and no pustules. 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 Hyperlipidemia, unspecified hyperlipidemia type Primary insomnia Persistent disorder of initiating or maintaining sleep Gastroesophageal reflux disease without esophagitis Esophageal reflux High risk medication use documented in this encounter [facility] Work Phone: Evaluation note* Diagnosis Weight loss- Primary Loss of weight Arthralgia, unspecified joint Fatigue, unspecified type Dry mouth Disturbance of salivary secretion Sore throat Acute pharyngitis Gastroesophageal reflux disease, unspecified whether esophagitis present Chronic cough Cough documented in this encounter [facility] Work Phone: History of Present illness Narrative* The last health maintenance visit was year(s) ago. Concerns raised today include: Joint pain , Arm numbness at night. The patient's health since the last visit is described as good. There are no interval changes in the patient's PMH, PSH, and current medications. There are no interval changes in the patient's social and family history. She has regular dental visits. She denies vision problems. She has hearing loss. hearing is slightly decreased . Left ear. Immunizations status: up to date. * Lifestyle: She consumes a diverse and healthy diet. She exercises regularly. She does not use tobacco. She denies alcohol use. * Reproductive health: the patient is postmenopausal. she denies menopausal symptoms. * Cervical cancer screening:. patient has no history of an abnormal pap smear. * Breast cancer screening:. 06/05/2021. a colonoscopy was performed 12/2013. * Metabolic screening: uncertain timing of her last lipid profile. * I have personally reviewed the OARRS report for JULIANNA DAN. I have considered the risks of abuse, dependence, addiction and diversion. * Is the patient prescribed a combination of a benzodiazepine and opioid? No. * Last urine drug screening date/ordered today: 10/14/2020 * Results of last screen: Results as expected. * Controlled Substance Agreement: * I have printed this form and reviewed each line item with the patient and the patient has verbalized understanding. * Date of the last Controlled Substance Agreement: 10/14/2020 * BENZODIAZEPINES * What is the patient s goal of therapy? anxiety. * Is this being achieved with current treatment? yes. * GAVIOTA-7 * 1. Feeling nervous, anxious or on edge- more than half the days * 2. Not being able to stop or control worrying - more than half the days * 3. Worrying too much about different things - more than half the days * 4. Trouble relaxing - several days * 5. Being so restless that it is hard to sit still - several days * 6. Becoming easily annoyed or irritable - more than half the days * 7. Feeling afraid as if something awful might happen - not at all * Total Score = 10 * Activities of Daily Living: * Yes, it is my opinion that this patient is benefitting from benzodiazepine therapy. * Physical functioning: Same * Family relationships: Same * Social relationships: Same * Mood: Same * Sleep patterns: Same * Overall functioning: Same * STIMULANTS * What is the patient s goal of therapy? concentration. * Is this being achieved with current treatment? yes. * Activities of Daily Living: * Yes, it is my opinion that this patient is benefitting from stimulant therapy . * Physical functioning: Same * Family relationships: Same * Social relationships: Same * Mood: Same * Sleep patterns: Same * Overall functioning: Same * SLEEP AIDS * What is the patient s goal of therapy? sleep. * Is this being achieved with current treatment? yes. * Activities of Daily Living: * Yes, it is my opinion that this patient is benefitting from sleep aid therapy . * Physical functioning: Same * Family relationships: Same * Social relationships: Same * Mood: Same * Sleep patterns: Same * Overall functioning: Same * left and right arms fall asleep at night wants to wait on testing due to cost * Discussed is due for a colonoscopy * wants to wait on PAP [facility] [address] Work Phone: Reason for referral (narrative)* Consultation (Routine) - Authorized Specialty Diagnoses / Procedures Referred By Latanya rock Referred To Contact Primary Care Diagnoses ADHD, predominantly inattentive type Procedures Follow Up In Advanced Primary Care - PCP [place] [address] [facility] [address] [place] [address] Referral ID Status Reason Start Date Expiration Date V isits Requested Visits Authorized [id number] Authorized 08/04/2023 01/31/2024 1 1 * Imaging (Routine) - Authorized Specialty Diagnoses / Procedures Referred By Latanya rock Referred To Contact Radiology Diagnoses Screening mammogram, encounter for Procedures BI mammo bilateral screening [place] [address] [place] [address] Referral ID Status Reason Start Date Expiration Date Visits Requested Visits Authorized [id number] Authorized Perform Procedure 08/04/2023 01/31/2024 1 1 [facility] Work Phone: Family History No Family History Records Found Father Name Dates Details Family history of dementia(V 17.2, Z81.8) Status:Active Family history of congestive heart failure(V17.49, Z82.49) Status:Active Father Name Dates Details Family history of dementia(V 17.2, Z81.8) Status:Active Family history of congestive heart failure(V17.49, Z82.49) Status:Active Father Name Dates Details Family history of dementia(V 17.2, Z81.8) Status:Active Family history of congestive heart failure(V17.49, Z82.49) Status:Active Father Name Dates Details Family history of dementia(V 17.2, Z81.8) Status:Active Family history of congestive heart failure(V17.49, Z82.49) Status:Active Unknown Family Member Name Dates Details Family history of dementia: Father(V17.2, Z81.8) Status:Active Family history of congestive heart failure: Father(V17.49, Z82.49) Status:Active Unknown Family Member Name Dates Details Family history of dementia: Father(V17.2, Z81.8) Status:Active Family history of congestive heart failure: Father(V17.49, Z82.49) Status:Active Unknown Family Member Name Dates Details Family history of dementia: Father(V17.2, Z81.8) Status:Active Family history of congestive heart failure: Father(V17.49, Z82.49) Status:Active Unknown Family Member Name Dates Details Family history of congestive heart failure: Father(V17.49, Z82.49) Status:Active Family history of dementia: Father(V17.2, Z81.8) Status:Active Unknown Family Member Name Dates Details Family history of dementia: Father(V17.2, Z81.8) Status:Active Family history of congestive heart failure: Father(V17.49, Z82.49) Status:Active Unknown Family Member Name Dates Details Family history of congestive heart failure: Father(V17.49, Z82.49) Status:Active Family history of dementia: Father(V17.2, Z81.8) Status:Active Unknown Family Member Name Dates Details Family history of dementia: Father(V17.2, Z81.8) Status:Active Family history of congestive heart failure: Father(V17.49, Z82.49) Status:Active Unknown Family Member Name Dates Details Family history of dementia: Father(V17.2, Z81.8) Status:Active Family history of congestive heart failure: Father(V17.49, Z82.49) Status:Active Unknown Family Member Name Dates Details Family history of dementia: Father(V17.2, Z81.8) Status:Active Family history of congestive heart failure: Father(V17.49, Z82.49) Status:Active Unknown Family Member Name Dates Details Family history of dementia: Father(V17.2, Z81.8) Status:Active Family history of congestive heart failure: Father(V17.49, Z82.49) Status:Active Unknown Family Member Name Dates Details Family history of dementia: Father(V17.2, Z81.8) Status:Active Family history of congestive heart failure: Father(V17.49, Z82.49) Status:Active Unknown Family Member Name Dates Details Family history of congestive heart failure: Father(V17.49, Z82.49) Status:Active Family history of dementia: Father(V17.2, Z81.8) Status:Active Unknown Family Member Name Dates Details Family history of dementia: Father(V17.2, Z81.8) Status:Active Family history of congestive heart failure: Father(V17.49, Z82.49) Status:Active Unknown Family Member Name Dates Details Family history of dementia: Father(V17.2, Z81.8) Status:Active Family history of congestive heart failure: Father(V17.49, Z82.49) Status:Active Unknown Family Member Name Dates Details Family history of congestive heart failure: Father(V17.49, Z82.49) Status:Active Family history of dementia: Father(V17.2, Z81.8) Status:Active Unknown Family Member Name Dates Details Family history of congestive heart failure: Father(V17.49, Z82.49) Status:Active Family history of dementia: Father(V17.2, Z81.8) Status:Active Unknown Family Member Name Dates Details Family history of dementia: Father(V17.2, Z81.8) Status:Active Family history of congestive heart failure: Father(V17.49, Z82.49) Status:Active Unknown Family Member Name Dates Details Family history of dementia: Father(V17.2, Z81.8) Status:Active Family history of congestive heart failure: Father(V17.49, Z82.49) Status:Active Unknown Family Member Name Dates Details Family history of dementia: Father(V17.2, Z81.8) Status:Active Family history of congestive heart failure: Father(V17.49, Z82.49) Status:Active Unknown Family Member Name Dates Details Family history of dementia: Father(V17.2, Z81.8) Status:Active Family history of congestive heart failure: Father(V17.49, Z82.49) Status:Active Unknown Family Member Name Dates Details Family history of congestive heart failure: Father(V17.49, Z82.49) Status:Active Family history of dementia: Father(V17.2, Z81.8) Status:Active Unknown Family Member Name Dates Details Family history of dementia: Father(V17.2, Z81.8) Status:Active Family history of congestive heart failure: Father(V17.49, Z82.49) Status:Active Unknown Family Member Name Dates Details Family history of dementia: Father(V17.2, Z81.8) Status:Active Family history of congestive heart failure: Father(V17.49, Z82.49) Status:Active Unknown Family Member Name Dates Details Family history of dementia: Father(V17.2, Z81.8) Status:Active Family history of congestive heart failure: Father(V17.49, Z82.49) Status:Active Unknown Family Member Name Dates Details Family history of dementia: Father(V17.2, Z81.8) Status:Active Family history of congestive heart failure: Father(V17.49, Z82.49) Status:Active Unknown Family Member Name Dates Details Family history of dementia: Father(V17.2, Z81.8) Status:Active Family history of congestive heart failure: Father(V17.49, Z82.49) Status:Active Summary Purpose Advance Directives No Advanced Directives Records FoundNo Advanced Directives Records FoundNo Advanced Directives Records FoundNo Advanced Directives Records FoundNo Advanced Directives Records FoundNo Advanced Directives Records FoundNo Advanced Directives Records Found Chief Complaint last dose zolpidem 04/28/22 , amphetamine dextroamphetamine 04/20/22 alprazolam 04/28/22last dose alprazolam zolpidem and amphetamine- dextroamphetamine 07/28/22 last dose alprazolam, amphetamine-detroamphetamine, zolpidem =10/27/22 Reason for Referral Specialty Diagnoses / Procedures Referred By Latanya t Referred To Contact Radiology Diagnoses Chronic cough Procedures XR chest 2 views Rosmery Cisneros MD [address] [place] [address] Referral ID Status Reason Start Date Expiration Date Visits Requested Visits Authorized [id number] Authorized Perform Procedure 11/18/2023 11/17/2024 1 1 Specialty Diagnoses / Procedures Referred By Jacobyac t Referred To Contact Otolaryngology Diagnoses Sore throat [place]mery Cisneros [place] [id number] [place] [address] Referral ID Status Reason Start Date Expiration Date Visits Requested Visits Authorized [id number] Authorized Specialty Services Required 11/18/2023 11/17/2024 1 1 Specialty Diagnoses / Procedures Referred By Contac t Referred To Contact Gastroenterology Diagnoses Gastroesophageal reflux disease, unspecified whether esophagitis present Rosmery Cisneros MD [address] [place] [address] Referral ID Status Reason Start Date Expiration Date Visits Requested Visits Authorized [id number] Authorized Specialty Services Required 11/18/2023 11/17/2024 1 1 Additional Source Comments INFORMATION SOURCE (unrecogn ized section and content) DATE CREATED AUTHOR AUTHOR'S ORGANIZ ATION 11/04/2022 [facility] DATE CREATED AUTHOR AUTHOR'S ORGANIZ ATION 01/16/2023 [facility] DATE CREATED AUTHOR AUTHOR'S ORGANIZ ATION 08/06/2023 [facility] DATE CREATED AUTHOR AUTHOR'S ORGANIZ ATION 09/11/2023 [facility] DATE CREATED AUTHOR AUTHOR'S ORGANIZ ATION 11/20/2023 [facility] DATE CREATED AUTHOR AUTHOR'S ORGANIZ ATION 12/16/2023 [facility] Reason for Visit (unrecogniz ed section and content) Specialty Diagnoses / Procedures Referred By Contac t Referred To Contact Primary Care Diagnoses ADHD, predominantly inattentive type Procedures Follow Up In Advanced Primary Care [place] [address] [facility] [address] [place] [address] Referral ID Status Reason Start Date Expiration Date V isits Requested Visits Authorized [id number] Authorized 01/28/2023 07/27/2023 1 1 Reason Comments Med Refill Patient here for 3 m onth refills of her Xanax, Ambien, Adderall. Last Tox screen was 10-28-22 and CSA was 05/06/23 Reason Comments ADHD Patient here for med refills of her Adderall. Patient is due for a Tox screen, CSA was 05/06/23 Patient states has not taken the Adderall for 2 months. She feels she is doing ok without the medication. Med Refill Patient needs Xanax and Ambien scripts as well. Due for Tox. CSA was 6..23 Specialty Diagnoses / Procedures Referred By Contac t Referred To Contact Primary Care Diagnoses ADHD, predominantly inattentive type Procedures Follow Up In Advanced Primary Care - [place]CP [place] [address] [facility] [address] [place] [address] Referral ID Status Reason Start Date Expiration Date V isits Requested Visits Authorized [id number] Authorized 08/04/2023 01/31/2024 1 1 Care Teams (unrecognized sec tion and content) Maintenance Mechanic Engine Relationship Specialty Start [place] [address] [facility] [address] [place] [address] PCP - General Family Medicine 07/26/23 Maintenance Mechanic Engine Relationship Specialty Start [place] [address] [facility] [address] [place] [address] PCP - [facility] 07/26/23 Maintenance Mechanic Engine Relationship Specialty Start [place] [address] [facility] [address] [place] [address] PCP - General Family [facility] 07/26/23 FOR RECORDS PERTAINING TO PATIENTS WHO ARE OR HAVE BEEN ENROLLED IN A CHEMICAL DEPENDENCY/SUBSTANCEABUSE PROGRAM, SOME INFORMATION MAY BE OMITTED. This clinical summary was aggregated from multiple sources. Caution should be exercised in using it in the provision of clinical care. This summary normalizes information from multiple sources, and as a consequence, information in this document may materially change the coding, format and clinical context of patient data. In addition, data may be omitted in some cases. CLINICAL DECISIONS SHOULD BE BASED ON THE PRIMARY CLINICAL RECORDS. [facility]. provides no warranty or guarantee of the accuracy or completeness of information in this document.
--- NOTE | 2023-12-20 06:59 | HP.PCM_ITS ---
History and Physical Date of Admission: 12/20/23 Intake Vital Signs 12/06/2414:03 Height 5 ft 6 in Weight: 122 lb BMI 19.7 BP 160/86 H Blood Pressure Location Rt brachial Position Sitting Respiration 18 Intake Visit Reasons: C-Scope blood in stool/Difficulty Swallow Chief Complaint: egd/c-scope Electro Winning Operator Required: No Is patient in pain?: No Allergies No Known Allergies Allergy (Unverified 12/06/23 15:04) Medications alprazolam 0.5 mg tablet 0.5 mg PO 12/06/23 [History Confirmed 12/06/23] olanzapine 5 mg tablet (Zyprexa) 5 mg PO DAILY 12/06/23 [History Confirmed 12/06/23] zolpidem 10 mg tablet 10 mg PO 12/06/23 [History Confirmed 12/06/23] PFSH Medical History (Updated 12/06/23 @ 15:01 by Lynn Rivas) Blood in stool Dysphagia Insomnia TBI (traumatic brain injury) Weight loss Surgical History (Updated 12/06/23 @ 15:01 by Lynn Rivas) History of surgery of head S/P foot surgery S/P right oophorectomy Family History (Updated 12/06/23 @ 15:03 by Lynn Rivas) Mother Asthma CAD (coronary artery disease) Breast cancerGrandmother Breast cancer HypertensionFather Heart disease Hypertension Social History (Updated 12/06/23 @ 15:03 by Lynn Hoods) Smoking Status: Never smoker alcohol intake: current substance use type: marijuana HPI HPI HPI: Patient is a 58-year-old female here for weight loss and blood in her stool. Patient does have a history of alcoholism. The patient reports that she has been having some epigastric pain. She has also been seeing some blood mixed with her stool. She denies nausea or vomiting. Her last colonoscopy was over 10 years ago. She does not know her extended family history but her immediate family history does not have any colon cancer. ROS General General: Yes weight change and fatigue; No appetite, colon cancer, breast cancer or weakness HEENT HEENT: Yes difficulty swallowing, eye injury, eye surgery and swollen glands; No hoarseness Endo Endocrine: No thyroid disease, diabetes mellitus, thyroid cancer, Hair loss, heat intolerance or cold intolerance Skin Skin: No rash or changing moles Breast Breast: No left breast lump, right breast lump, nipple discharge, breast pain, abnormal mammogram, abnormal US or breast enlargement Musc Musculoskeletal: Yes back problems and arthritis; No rheumatoid arthritis, gout or joint pain Cardio Cardiovascular: No murmur, pacemaker, heart disease, atrial fibrillation, high blood pressure, heart attack, heart stent, palpitations, shortness of breat with exertion or chest pain Psych Psychiatric: Yes depression and anxiety; No hearing voices Resp Respiratory: Yes shortness of breath, Yes sleep apnea, Yes cough, No COPD, Yes asthma, No emphysema and No wheezing Gastro Gastrointestinal: Yes abdominal pain, Yes nausea or vomiting, Yes diarrhea, Yes constipation, Yes blood in stool, Yes acid reflux, Yes hemorrhoids, No ulcers, No gallbladder problem and Yes black,tarry stools Dorian Hematologic: No blood thinners, No blood disorders, No bleeding, No anemia and No blood clots Neuro Neurologic: No system reviewed and no additional complaints, except as documented, No as per HPI, No abnormal gait, No abnormal hearing, No abnormal movements, No abnormal speech, No behavioral changes, No burning sensations, No confusion, No convulsions, No disequilibrium, No dizziness, No localized weakness, No frequent falls, No headache(s), No lack of coordination, No loss of vision, No memory loss, Yes numbness, No other visual disturbances, No radicular pain, No restless legs, No sensory deficit, No syncope, Yes tingling, No tremor(s), No weakness and No other Exam Const General: cooperative Orientation: alert and oriented x3 HENMT Head: normal to inspection Neck Neck: normal visual inspection and full ROM Chest Chest palpation & inspection: normal inspection of the chest Resp Effort & Inspection: normal respiratory effort Auscultation: clear to auscultation bilaterally Cardio Rate: regular rate Rhythm: regular rhythm GI Inspection: non-distended Palpation: soft and nontender Skin General: no rashes or lesions noted Neuro General: patient alert and patient oriented x3 Extrem General: full ROM Psych Appearance: grossly normal Mental Status: mental status grossly normal Assessment and Plan Assessment and Plan (1) Blood in stool: Status: Acute (2) Weight loss: Status: Acute Orders: Orders Colonoscopy 12/20/23 EGD 12/20/23 Plan The patient has been having weight loss that is unintentional and she has been having abdominal pain and blood in the stool. I will perform an EGD and colonoscopy to evaluate the bowel. I explained endoscopy in detail to the patient. I explained the risks including but not limited to stroke or heart attack with anesthesia, perforation of the GI tract, bleeding, infection. I explained that any of these could necessitate further emergency surgery. The patient understands and all questions were answe red sufficiently. The patient wishes to proceed with procedure. Zachariah Atkins MD Pager: [facility] [address] [place] [address] [address] [place] [address] Office: I have seen and examined the patient and reviewed the H&P. There are no changes.
[2023-12-20] MEDS: Lactated Ringers 1,000 ML 15 ML IV (07:22)
--- NOTE | 2023-12-20 08:00 | EGD_PTH ---
PATHOLOGY RESULTS PATIENT: JULIANNA LINTON LOC: EN U#:[id number] AGE/SX: 58/F ROOM: RE12/20/[address]: Dr. Zachariah Atkins MD : 1965 BED: DIS: 12/20/2023 SPEC #: [id number] RECD: 12/20/23 09:40 STATUS: SONDRA FLORES #: [id number] GABRIELLA: 12/20/23 08:[address]: Zachariah Atkins DEPT: SURGICAL PATHOLOGY RECD BY: Radha Merlos ENTERED: 12/20/23 10:13 SP TYPE: EGD BIOPSY OTHR DR: T[facility] Tissues: Stomach, NOS Procedures: Special Stain Group II Surgery Specimen Level IV Alcian Blue/PAS (control) HEADER OPERATION: Colonoscopy, EGD, biopsy PRE-OP DIAGNOSIS: Blood in stool, weight loss TISSUE SUBMITTED: Gastroesophageal junction biopsy MICROSCOPIC DIAGNOSIS Gastroesophageal junction, biopsy: Focal changes of reflux. No evidence of goblet cell metaplasia. See comment. AM:jordan 12/21/2023 COMMENT Alcian blue/PAS stain with matched control supports the above diagnosis. MICROSCOPIC DESCRIPTION Slides are reviewed. GROSS DESCRIPTION Received in fixative is one container labeled with the patient's name and designated GE junction biopsy. The specimen consists of multiple irregular fragments of light landon soft tissue that in aggregate measure 0.5 x 0.5 x 0.1 cm. The specimen is totally submitted in one cassette. / SJ:jordan 12/20/2023 TC:3 CPT: 15720, 47833
--- NOTE | 2023-12-20 08:31 | OP.CCLET_ITS ---
[facility] for Estephania Kathleen [facility] This procedure was performed on Wednesday, December 20, 2023. My impressions and recommendations are as follows: Impressions : - Reflux esophagitis with no bleeding. Biopsied. - Normal stomach. - Normal examined duodenum. Recommendations : - Discharge patient to home. - Resume previous diet. - Continue present medications. - Await pathology results. My findings are described in the full procedure note, which is enclosed. If I can be of further assistance, please feel free to contact me at Doctor phone number(s): , Work: . Sincerely, Zachariah Atkins MD 12/20/2023 8:30:33 AM This report has been signed electronically.
--- NOTE | 2023-12-20 08:31 | OP.EGD_ITS ---
Patient Name: Estephania Kathleen Procedure Date: 12/20/2023 7:48 AM Date of : 1965 Age: 58 Procedure: Upper GI endoscopy Indications: Anorexia, Weight loss Providers: Zachariah Atkins MD Referring MD: Zachariah Atkins MD Medicines: Monitored Anesthesia Care Patient Profile: This is a 58 year old female. Refer to note in patient chart for documentation of history and physical. Complications: No immediate complications. Estimated blood loss: Minimal. Procedure: Pre-Anesthesia Assessment: - Prior to the procedure, a History and Physical was performed, and patient medications and allergies were reviewed. The patient's tolerance of previous anesthesia was also reviewed. The risks and benefits of the procedure and the sedation options and risks were discussed with the patient. All questions were answered, and informed consent was obtained. Prior Anticoagulants: The patient has taken no anticoagulant or antiplatelet agents. After reviewing the risks and benefits, the patient was deemed in satisfactory condition to undergo the procedure. After obtaining informed consent, the endoscope was passed under direct vision. Throughout the procedure, the patient's blood pressure, pulse, and oxygen saturations were monitored continuously. The gastroscope was introduced through the mouth, and advanced to the fourth part of duodenum. The upper GI endoscopy was accomplished without difficulty. The patient tolerated the procedure well. Scope In: 8:05:41 AM Scope Out: 8:08:05 AM Total Procedure Duration Time 0 hours 2 minutes 24 seconds Findings: Esophagitis with no bleeding was found at the gastroesophageal junction. Biopsies were taken with a cold forceps for histology. The stomach was normal. The examined duodenum was normal. Impression: - Reflux esophagitis with no bleeding. Biopsied. - Normal stomach. - Normal examined duodenum. Recommendation: - Discharge patient to home. - Resume previous diet. - Continue present medications. - Await pathology results. Procedure Code(s): --- Professional --- 98289, Esophagogastroduodenoscopy, flexible, transoral; with biopsy, single or multiple Diagnosis Code(s): --- Professional --- K21.00, Gastro-esophageal reflux disease with esophagitis, without bleeding R63.0, Anorexia R63.4, Abnormal weight loss CPT copyright 2021 [employer] [place] [employer]. All rights reserved. The codes documented in this report are preliminary and upon polymerization helper review may be revised to meet current compliance requirements. Zachariah Atkins MD 12/20/2023 8:30:33 AM This report has been signed electronically. Number of Addenda: 0 Note Initiated On: 12/20/2023 7:48 AM
--- NOTE | 2023-12-20 08:32 | OP.COLON_ITS ---
Patient Name: Estpehania Kathleen Procedure Date: 12/20/2023 8:10 AM Date of : 1965 Age: 58 Procedure: Colonoscopy Indications: Weight loss Providers: Zachariah Atkins MD Referring MD: Zachariah Atkins MD Medicines: Propofol per Anesthesia Patient Profile: This is a 58 year old female. Refer to note in patient chart for documentation of history and physical. Last Colonoscopy: 10 years ago. Complications: No immediate complications. Procedure: Pre-Anesthesia Assessment: - Prior to the procedure, a History and Physical was performed, and patient medications and allergies were reviewed. The patient's tolerance of previous anesthesia was also reviewed. The risks and benefits of the procedure and the sedation options and risks were discussed with the patient. All questions were answered, and informed consent was obtained. Prior Anticoagulants: The patient has taken no anticoagulant or antiplatelet agents. After reviewing the risks and benefits, the patient was deemed in satisfactory condition to undergo the procedure. After I obtained informed consent, the scope was passed under direct vision. Throughout the procedure, the patient's blood pressure, pulse, and oxygen saturations were monitored continuously. The Colonoscope was introduced through the anus and advanced to the cecum, identified by appendiceal orifice and ileocecal valve. The colonoscopy was performed without difficulty. The patient tolerated the procedure well. The quality of the bowel preparation was good. The ileocecal valve, appendiceal orifice, and rectum were photographed. Scope In: 8:11:29 AM Scope Withdrawal Time 0 hours 4 minutes 46 seconds Scope Out: 8:21:55 AM Total Procedure Duration Time 0 hours 10 minutes 26 seconds Findings: The entire examined colon appeared normal on direct and retroflexion views. Impression: - The entire examined colon is normal on direct and retroflexion views. - No specimens collected. Recommendation: - Discharge patient to home. - Resume previous diet. - Continue present medications. - Repeat colonoscopy in 10 years for screening purposes. Procedure Code(s): --- Professional --- 96757, Colonoscopy, flexible; diagnostic, including collection of specimen(s) by brushing or washing, when performed (separate procedure) Diagnosis Code(s): --- Professional --- R63.4, Abnormal weight loss CPT copyright 2021 [employer]. All rights reserved. The codes documented in this report are preliminary and upon hims coder review may be revised to meet current compliance requirements. Zachariah Atkins MD 12/20/2023 8:31:52 AM This report has been signed electronically. Number of Addenda: 0 Note Initiated On: 12/20/2023 8:10 AM
--- NOTE | 2023-12-20 08:32 | OP.CCLET_ITS ---
12/20/2023 T[facility] Re : Colonoscopy procedure for Estephania Kothari [facility] This procedure was performed on Wednesday, December 20, 2023. My impressions and recommendations are as follows: Impressions : - The entire examined colon is normal on direct and retroflexion views. - No specimens collected. Recommendations : - Discharge patient to home. - Resume previous diet. - Continue present medications. - Repeat colonoscopy in 10 years for screening purposes. My findings are described in the full procedure note, which is enclosed. If I can be of further assistance, please feel free to contact me at Doctor phone number(s): , Work: . Sincerely, Zachariah Atkins MD 12/20/2023 8:31:52 AM This report has been signed electronically.
== END 2023-12-20 09:27 | disposition home or self-care (01) ==
LOC: EN 06:46 → AC 06:48
PROVIDERS: Visit Provider Surgery
PROC: 0DJD8ZZ Inspection of Lower Intestinal Tract, Via Natural or Artificial Opening Endoscopic (ICD-10-PCS; CPT 45378; principal; 2023-12-20 07:55)
DX: K21.00 Gastro-esophageal reflux disease with esophagitis, without bleeding (principal); F10.21 Alcohol dependence, in remission; K92.1 Melena; Z79.899 Other long term (current) drug therapy; R63.4 Abnormal weight loss; J45.909 Unspecified asthma, uncomplicated; Z87.19 Personal history of other diseases of the digestive system
CPT/HCPCS: 43239; 45378; 88305; 88313; J7120; J2405

== ENCOUNTER → 2024-01-24 | Outpatient (CLI) | payer MEDICAID, SELFPAY ==
--- NOTE | 2024-01-24 08:05 | CT_ITS ---
STUDY: CT BRAIN WITHOUT CONTRAST REASON FOR EXAM: Female, 58 years old. AMNESIA, HX TRAUMATIC BRAIN INJURY RADIATION DOSAGE (If Supplied By Facility): CTDIvol = ( 47.06 ) mGy, DLP = ( 943.26 ) mGycm TECHNIQUE: Transaxial CT imaging of the brain was performed without administration of intravenous contrast material. Individualized dose optimization techniques were used for this CT. COMPARISON: No relevant priors. FINDINGS: Normal soft tissue structures. Normal calvarium. Normal size ventricles and extra-axial spaces for the patient''s age. Normal white matter tracts of the cerebral hemispheres. Normal basal ganglia and thalami. Normal brainstem. Normal cerebellum. There is no intracranial hemorrhage. There are no findings of an acute ischemic infarction. Normal visualized paranasal sinuses. CT/Brain/Head without Contrast IMPRESSION: Normal unenhanced CT scan of the brain. Electronically Signed: Valdemar Dodd MD at 12:47 EDT ,
--- OUTSIDE RECORDS SUMMARY | 2024-01-24 08:07 | XMS RPT_ITS | CCD ---
Author Name Unknown Address [address] [place] [address] Organization [facility] Care Team Providers Care Telecommunication Engineer Name Role Phone Rosmery Cisneros Unavailable Rosmery Cisneros Unavailable Unavailable Rosmery Cisneros Unavailable [phone] Unavailable Unavailable Unavailable Unavailable Dr. Rosmery Cisneros [...] / oxyCODONE; Translations: [Percocet TABS] Drug Allergy WD-YWMM-Xfdgon ke 201 Work Phone: (20 sources) Acetaminophen / oxyCODONE; Translations: [Percocet TABS] Drug Allergy 3 [facility] (2 sources) Acetaminophen / oxyCODONE; Translations: [OXYCODONE-ACETAM INOPHEN] Drug Allergy 3 [facility] 3 Repository (1 source) chicken allergenic extract; Translations: [POULTRY] Drug Allergy 5 [facility] Repository (1 source) egg extract; Translations: [EGG] Drug Allergy 3 [facility] Repository (1 source) Shellfish; Translations: [SHELLFISH DERIVED] Propensity to adverse reactions to drug (disorder) 3 [facility] Repository (1 source) CHICKEN; Translations: [CHICKEN] Propensity to adverse reactions to food (disorder) 3 [facility] Repository Medications Current Medications Medication Drug Class(es) Dates Sig (Normalized) Sig (Original) [id number] 200 actuat albuterol 0.09 mg/actuat metered dose [...] source) Taking high risk medication; Translations: [Other mcfp (current) drug therapy] 11-03-2023 Episodic Other aftercare (2 sources) Other exterminator termite (current) drug therapy; Translations: [Other exterminator termite (current) drug therapy] Onset: 11-03-2023 Episodic Other [...] 165.1 cm Rosmery Cisneros MD Work Phone: [facility] 11-18-2023 14:02-0500 Body mass index (BMI) [Ratio] 19.85 kg/m2 Rosmery Cisneros MD Work Phone: [facility] 11-18-2023 14:02-0500 Body temperature 96.49 [degF] Rosmery Cisneros MD Work Phone: [facility] 11-18-2023 14:02-0500 Body weight 54.11 kg Rosmery Cisneros MD Work Phone: [facility] 11-18-2023 14:02-0500 Diastolic blood pressure 70 mm[Hg] Rosmery Cisneros MD Work Phone: [facility] 11-18-2023 14:02-0500 Heart rate 72 /min Rosmery Cisneros MD Work Phone: [facility] 11-18-2023 14:02-0500 Respiratory rate 16 /min Rosmery Cisneros MD Work Phone: [facility] 11-18-2023 14:02-0500 Systolic blood pressure 126 mm[Hg] Rosmery Cisneros MD Work Phone: [facility] 11-03-2023 08:49-0500 Body height 165.1 cm Rosmery Cisneros MD Work Phone: [facility] 11-03-2023 08:49-0500 Body mass index (BMI) [Ratio] 20.1 kg/m2 Rosmery Cisneros MD Work Phone: [facility] 11-03-2023 08:49-0500 Body temperature 97.7 [degF] Rosmery Cisneros MD Work Phone: [facility] 11-03-2023 08:49-0500 Body weight 54.8 kg Rosmery Cisneros MD Work Phone: [facility] 11-03-2023 08:49-0500 Diastolic blood pressure 74 mm[Hg] Rosmery Cisneros MD Work Phone: [facility] 11-03-2023 08:49-0500 Heart rate 74 /min Rosmery Cisneros MD Work Phone: [facility] 11-03-2023 08:49-0500 Respiratory rate 16 /min Rosmery Cisneros MD Work Phone: [facility] 11-03-2023 08:49-0500 Systolic blood pressure 122 mm[Hg] Rosmery Cisneros MD Work Phone: [facility] 08-04-2023 08:25-0400 Body height 165.1 cm Rosmery Cisneros MD Work Phone: [facility] 08-04-2023 08:25-0400 Body mass index (BMI) [Ratio] 22.8 kg/m2 Rosmery Cisneros MD Work Phone: [facility] 08-04-2023 08:25-0400 Body temperature 97.7 [degF] Rosmery Cisneros MD Work Phone: [facility] 08-04-2023 08:25-0400 Body weight 62.14 kg Rosmery Cisneros MD Work Phone: [facility] 08-04-2023 08:25-0400 Diastolic blood pressure 76 mm[Hg] Rosmery Cisneros MD Work Phone: [facility] 08-04-2023 08:25-0400 Heart rate 66 /min Rosmery Cisneros MD Work Phone: [facility] 08-04-2023 08:25-0400 Respiratory rate 16 /min Rosmery Cisneros MD Work Phone: [facility] 08-04-2023 08:25-0400 Systolic blood pressure 124 mm[Hg] Rosmery Cisneros MD Work Phone: [facility] 05-06-2023 08:31-0400 Body height 165.1 cm Rosmery Cisneros MD Work Phone: [facility] 05-06-2023 08:31-0400 Body mass index (BMI) [Ratio] 21.93 kg/m2 Rosmery Cisneros MD Work Phone: [facility] 05-06-2023 08:31-0400 Body temperature 96.21 [degF] Rosmery Cisneros MD Work Phone: [facility] 05-06-2023 08:31-0400 Body weight 59.78 kg Rosmery Cisneros MD Work Phone: [facility] 05-06-2023 08:31-0400 Diastolic blood pressure 66 mm[Hg] Rosmery Cisneros MD Work Phone: [facility] 05-06-2023 08:31-0400 Heart rate 60 /min Rosmery Cisneros MD Work Phone: [facility] 05-06-2023 08:31-0400 Respiratory rate 16 /min Rosmery Cisneros MD Work Phone: [facility] 05-06-2023 08:31-0400 Systolic blood pressure 124 mm[Hg] Rosmery Cisneros MD Work Phone: [facility] 10-28-2022 08:07-0500 Body height 167.64 cm Rosmery Cisneros Work Phone: FD-BJCE-Pazymrro 201 Work Phone: 10-28-2022 08:07-0500 Body mass index (BMI) [Ratio] 21.67 kg/m2 Rosmery Robert Cisneros Work Phone: RL-GLSG-Wtxnmcep 201 Work Phone: 10-28-2022 08:07-0500 Body surface area Derived from formula 1.69 m2 Rosmery Cisneros Work Phone: CM-YLDA-Mahtawyd 201 Work Phone: 10-28-2022 08:07-0500 Body temperature 96.8 [degF] Rosmery Cisneros Work Phone: ZT-UWEH-Gtgedmfd 201 Work Phone: 10-28-2022 08:07-0500 Body weight 60.9 kg Rosmery Marinsky Work Phone: UA-EXDS-Evppoijp 201 Work Phone: 10-28-2022 08:07-0500 Diastolic blood pressure 90 mm[Hg] Rosmery Jones Revroxysky Work Phone: PB-IHFQ-Kggbwqek 201 Work Phone: 10-28-2022 08:07-0500 Heart rate 88 /min Rosmery Marinsky Work Phone: SB-LUPU-Mjcyilqn 201 Work Phone: 10-28-2022 08:07-0500 Respiratory rate 18 /min Rosmery Marinsky Work Phone: XK-UFBA-Roneglap 201 Work Phone: 10-28-2022 08:07-0500 Systolic blood pressure 150 mm[Hg] Rosmery Marinsky Work Phone: XC-KAQA-Pbmggosi 201 Work Phone: 07-29-2022 08:43-0400 Diastolic blood pressure 70 mm[Hg] Rosmery Marinsky Work Phone: ZQ-QHNT-Epgutraj 201 Work Phone: 07-29-2022 08:43-0400 Systolic blood pressure 120 mm[Hg] Rosmery Marinsky Work Phone: HK-BDLE-Ksncmvnb 201 Work Phone: 07-29-2022 08:28-0400 Body height 167.64 cm Rosmery Marinsky Work Phone: YC-BGVG-Qrnaszza 201 Work Phone: 07-29-2022 08:28-0400 Body mass index (BMI) [Ratio] 21.33 kg/m2 Rosmery Cisneros Work Phone: QO-TYMO-Gtomhmpq 201 Work Phone: 07-29-2022 08:28-0400 Body surface area Derived from formula 1.68 m2 Rosmery Cisneros Work Phone: QT-DAGD-Tpkqyrah 201 Work Phone: 07-29-2022 08:28-0400 Body temperature 97.3 [degF] Rosmery Cisneros Work Phone: XV-FSHD-Fqwzlusd 201 Work Phone: 07-29-2022 08:28-0400 Body weight 59.93 kg Rosmery Cisneros Work Phone: SB-BVRT-Uvtztkky 201 Work Phone: 07-29-2022 08:28-0400 Diastolic blood pressure 80 mm[Hg] Rosmery Cisneros Work Phone: EQ-WHTG-Ubrwjddg 201 Work Phone: 07-29-2022 08:28-0400 Heart rate 72 /min Rosmery Cisneros Work Phone: VR-TPYU-Gnsfqwqe 201 Work Phone: 07-29-2022 08:28-0400 Respiratory rate 18 /min Rosmery Cisneros Work Phone: PK-TKRV-Drgcesrs 201 Work Phone: 07-29-2022 08:28-0400 Systolic blood pressure 160 mm[Hg] Rosmery Cisneros Work Phone: BW-WQIF-Puoytabg 201 Work Phone: 04-29-2022 08:32-0400 Heart rate 59 /min Rosmery Noyolay Work Phone: PZ-CPWS-Vutyplej 201 Work Phone: 04-29-2022 08:32-0400 SaO2% (BldA) [Mass fraction] 98 % Rosmery Cisneros Work Phone: XA-AMEY-Gpqyztno 201 Work Phone: 04-29-2022 08:11-0400 Body height 167.64 cm Rosmery Cisneros Work Phone: TY-UMKF-Oyuaowtx 201 Work Phone: 04-29-2022 08:11-0400 Body mass index (BMI) [Ratio] 21.02 kg/m2 Rosmery Cisneros Work Phone: DR-EYXN-Ssrobucn 201 Work Phone: 04-29-2022 08:11-0400 Body surface area Derived from formula 1.67 m2 Rosmery Cisneros Work Phone: EL-KMMY-Kjhuasmx 201 Work Phone: 04-29-2022 08:11-0400 Body temperature 98 [degF] Rosmery Cisneros Work Phone: NC-JOON-Dqpkkjme 201 Work Phone: 04-29-2022 08:11-0400 Body weight 59.08 kg Rosmery Cisneros Work Phone: LU-YBJQ-Pgrxlcxd 201 Work Phone: 04-29-2022 08:11-0400 Diastolic blood pressure 74 mm[Hg] Rosmery Cisneros Work Phone: GP-IPDU-Lkhqppwz 201 Work Phone: 04-29-2022 08:11-0400 Heart rate 72 /min Rosmery Cisneros Work Phone: BM-FYKD-Rmsozgyv 201 Work Phone: 04-29-2022 08:11-0400 Respiratory rate 16 /min Rosmery Cisneros Work Phone: QA-HXDX-Uvnlgbns 201 Work Phone: 04-29-2022 08:11-0400 Systolic blood pressure 128 mm[Hg] Rosmery Cisneros Work Phone: KH-REOI-Jwxmrqht 201 Work Phone: 10-28-2021 10:33-0500 Systolic blood pressure 124 mm[Hg] Rosmery Cisneros Work Phone: FN-XYQD-Ybtlyruq 201 Work Phone: 10-27-2021 09:39-0500 Body height 167.64 cm Rosmery Cisneros Work Phone: LD-BZDA-Gdpoumgh 201 Work Phone: 10-27-2021 09:39-0500 Body mass index (BMI) [Ratio] 22.03 kg/m2 Rosmery Cisneros Work Phone: FY-KPMD-Joieyceu 201 Work Phone: 10-27-2021 09:39-0500 Body surface area Derived from formula 1.7 m2 Rosmery Cisneros Work Phone: BX-HGJJ-Oypwxlgf 201 Work Phone: 10-27-2021 09:39-0500 Body temperature 97.1 [degF] Rosmery Cisneros Work Phone: YF-AUVG-Pjpstsal 201 Work Phone: 10-27-2021 09:39-0500 Body weight 61.92 kg Rosmery Cisneros Work Phone: VB-TBHE-Ddivwwvw 201 Work Phone: 10-27-2021 09:39-0500 Diastolic blood pressure 76 mm[Hg] Rosmery Cisneros Work Phone: HA-PPFY-Ntaimyio 201 Work Phone: 10-27-2021 09:39-0500 Heart rate 76 /min Rosmery Cisneros Work Phone: EU-FBKD-Drnyultd 201 Work Phone: 10-27-2021 09:39-0500 Respiratory rate 16 /min Rosmery Cisneros Work Phone: JX-ISIM-Xvdajrhc 201 Work Phone: 10-27-2021 09:39-0500 Systolic blood pressure 124 mm[Hg] Rosmery Cisneros Work Phone: TX-SINH-Ziocdxsf 201 Work Phone: 05-29-2021 09:28-0400 Body height 167.64 cm Rosmery Cisneros Work Phone: VG-BCNI-Sdndmvzc 201 Work Phone: 05-29-2021 09:28-0400 Body mass index (BMI) [Ratio] 21.35 kg/m2 Rosmery Cisneros Work Phone: JQ-QLPV-Xuiduulo 201 Work Phone: 05-29-2021 09:28-0400 Body surface area Derived from formula 1.68 m2 Rosmery Cisneros Work Phone: XQ-CHMF-Bszxrrqt 201 Work Phone: 05-29-2021 09:28-0400 Body temperature 97.3 [degF] Rosmery Cisneros Work Phone: ZT-OWEH-Dqghxuds 201 Work Phone: 05-29-2021 09:28-0400 Body weight 59.99 kg Rosmery Cisneros Work Phone: EH-MSUU-Ghcalnig 201 Work Phone: 05-29-2021 09:28-0400 Diastolic blood pressure 76 mm[Hg] Rosmery Cisneros Work Phone: HE-DTBB-Abqmzqbl 201 Work Phone: 05-29-2021 09:28-0400 Heart rate 80 /min Rosmery Cisneros Work Phone: XF-UHLS-Igrsruzg 201 Work Phone: 05-29-2021 09:28-0400 Respiratory rate 18 /min Rosmery Cisneros Work Phone: HW-SRZA-Tdxxjycg 201 Work Phone: 05-29-2021 09:28-0400 Systolic blood pressure 130 mm[Hg] Rosmery Cisneros Work Phone: KV-EPUE-Asilcods 201 Work Phone: 10-14-2020 10:34-0500 BMI (Body Mass Index) 22.33 kg/m2 Rosmery Cisneros WR-JLFQ-Bljhseub 201 Work Phone: 10-14-2020 10:34-0500 Body Temperature 97.6 [degF] Rosmery Cisneros BO-UBHZ-Qxquwaw e 201 Work Phone: Encounters Encounter Date Encounter Type Care Provider Facility Start: 12-14-2023 End: 12-14-2023 ambulatory [facility] Facility:[facility] Start: 11-18-2023 End: 11-18-2023 ambulatory ROSMERY Jones [facility] Ambulatory Start: 11-18-2023 End: 11-18-2023 Office outpatient visit 15 minutes Rosmery Cisneros MD Work Phone: [facility] Primary Care Procedures Date Procedure Procedure Detail [...] 12-04-2031 Screening for malignant neoplasm of colon [facility] Start: 10-27-2026 Lipid panel Lipid Panel [facility] Start: 01-31-2024 End: 01-31-2024 Patient encounter procedure 01/31/2024 9:00 AM EDT Office Visit [facility] [address] [facility] [address] [place] [id number] Shubham Rg, [employer] [address] [facility] [address] [place] [address] [facility] Start: 11-18-2023 End: 05-18-2024 25-hydroxyvitamin D3 [Mass/volume] in Serum or Plasma Vitamin D 25-Hydroxy,Total (for eval of Vitamin D levels) Lab Routine Arthralgia, unspecified joint Expected: 11/18/2023 (Approximate), Expires: 05/18/2024 [facility] Work Phone: Immunizations Immunization Date Immunization Notes Care Provider Fa cility 03-21-2021 Moderna COVID-19 Vaccine 100 MCG/0.5ML Intramuscular Suspension Rosmery Cisneros Work Phone: [facility] 02-21-2021 Moderna COVID-19 Vaccine 100 MCG/0.5ML Intramuscular Suspension Rosmery Cisneros Work Phone: [facility] 05-04-2016 hepatitis A vaccine, adult dosage; Translations: [Hepatitis A, adult] Rosmery Cisneros KE-CZRM-Wtvxpzqy Work Phone: Payers Date Payer Category Payer Unknown [id number] 2022 Unknown 2022 Unknown [id number] 1965 Unknown [id number] 2.16. [id number] 1965 Unknown [id number] 2.16. [id number] 1963 Unknown [id number] 2.16. [id number] 1963 Unknown [id number] 2.16. [id number] 1963 Unknown [id number] 2.16. [id number] 1963 Unknown [id number] 2.16. [id number] 1963 Unknown [id number] 2.16. [id number] 1963 Unknown [id number] 2.16.8 [id number] 1963 Unknown [id number] 2.16.84 [id number] 1963 Unknown [id number] 2.16.840 .[id number] 1963 Unknown [id number] 2.16.8 [id number] 1963 Unknown [id number] 2.16.8 [id number] Social History Date Type Detail Facility Start: 05-06-2023 End: 11-03-2023 Occasional alcohol use Occasional alcohol use WH-CQVH-Pzthkq ke 201 Work Phone: Functional Status Date Assessment Result Facility NEGATED: Highlighted row Functional performance Functional status health issues are not documented Disease XE-KXCH-Keikbcpb 201 Work Phone: Mental Status Date Assessment Result Facility NEGATED: Highlighted row Cognitive function [Interpretation] Cognitive status health issues are not documented Disease NE-RPPB-Zekucnpu 201 Work Phone: Clinical Notes 10-14-2020 to [...] last 7-8 weeks Having some heartburn Saw guest relations representative who took off lesion Electric pain upper [...] chest 2 views documented in this encounter [facility] Work Phone: 11-03-2023 History of Present illness [...] much changed diet and lost weight OARRS: Rosmery Cisneros MD on 11/03/2023 8:38 AM I [...] 0.5 mg tablet documented in this encounter [facility] Work Phone: 08-04-2023 History of Present illness [...] bilateral screening tomosynthesis documented in this encounter [facility] Work Phone: 05-06-2023 History of Present illness Narrative OARRS: Rosmery Cisneros MD on 05/06/2023 8:39 AM I have personally reviewed the OARRS report for Julianna Dan. I have considered the risks of abuse, dependence, addiction and diversion Is the patient prescribed a combination of a benzodiazepine and opioid? No Last Urine Drug Screen / ordered today: No Recent Results (from the past 15546 hour(s)) Amphetamine Confirm, Urine Collection Time: 10/28/22 [...] 0.5 mg tablet documented in this encounter [facility] Work Phone: 05-06-2023 Instructions Rosmery Cisneros MD [...] cream, cakes, cookies, chips, shortening, popcorn, and Khmer fries. Hydrogenated fats (trans fats) may be [...] acids are called omega-3, omega-6, and omega-9. Meally-3 fatty acids are found in fish and some plants. They are good for heart health. They may reduce the risk of stroke, high blood pressure, and other chronic disease. Good sources are oily fish such as salmon, mackerel and tuna. Good plant sources for omega-3 fatty acids are canola oil, soybeans, flaxseed and certain nuts (especially walnuts and almonds). Meally-6 fatty acid is found in corn, safflower, soybean, and sunflower oils. Meally-9 fatty acid is found in olive oil and canola oil. Getting some of these good fats is healthful, but many Americans eat too much and become overweight. It is likely that the balance of fatty acids is very important. The [place] diet typically contains too much omega-6 fatty [...] high-fat fried snack. documented in this encounter [facility] Work Phone: 10-28-2022 History of Present illness [...] relationships: SameMood: SameSleep patterns: SameOverall functioning: Same [facility] Work Phone: 10-06-2022 Chief complaint Narrative - [...] medical records.The patient was located at home [facility] Work Phone: 12-30-2021 History of Present illness [...] to coughrib and TMJ still feels swollen [employer] [address] Work Phone: 10-27-2021 History of Present illness [...] happen - several daysTotal Score = 14 [facility] Work Phone: 09-30-2021 History of Present illness [...] got headache pounding cough yellow no fever [employer] [address] Work Phone: 10-14-2020 History of Present illness [...] skin weeping, no nausea and no pustules. 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 Hyperlipidemia, unspecified hyperlipidemia type Primary insomnia Persistent disorder of initiating or maintaining sleep Gastroesophageal reflux disease without esophagitis Esophageal reflux High risk medication use documented in this encounter [facility] Work Phone: Evaluation note* Diagnosis Weight loss- Primary Loss of weight Arthralgia, unspecified joint Fatigue, unspecified type Dry mouth Disturbance of salivary secretion Sore throat Acute pharyngitis Gastroesophageal reflux disease, unspecified whether esophagitis present Chronic cough Cough documented in this encounter [facility] Work Phone: History of Present illness Narrative* [...] colonoscopy * wants to wait on PAP [facility] 201 Work Phone: Reason for referral (narrative)* Consultation (Routine) - Authorized Specialty Diagnoses / Procedures Referred By Latanya rock Referred To Contact Primary Care Diagnoses ADHD, predominantly inattentive type Procedures Follow Up In Advanced Primary Care - [place]CP [place] [address] [facility] [address] [place] [address] Referral ID Status Reason Start Date Expiration Date V isits Requested Visits Authorized [id number] Authorized 08/04/2023 01/31/2024 1 1 * Imaging (Routine) - Authorized Specialty Diagnoses / Procedures Referred By Latanya rock Referred To Contact Radiology Diagnoses Screening mammogram, encounter for Procedures BI mammo bilateral screening [place] [address] [place] [address] Referral ID Status Reason Start Date Expiration Date Visits Requested Visits Authorized [id number] Authorized Perform Procedure 08/04/2023 01/31/2024 1 1 [facility] Work Phone: Family History No Family History [...] XR chest 2 views Rosmery Cisneros MD [address] [place] [id number] Referral ID Status Reason Start Date Expiration Date Visits Requested Visits Authorized [id number] Authorized Perform Procedure 11/18/2023 11/17/2024 1 1 Specialty Diagnoses / Procedures Referred By Jacobyac t Referred To Contact Otolaryngology Diagnoses Sore throat Rosmery Cisneros [place] [id number] [place] [id number] Referral ID Status Reason Start Date Expiration Date Visits Requested Visits Authorized [id number] Authorized Specialty Services Required 11/18/2023 11/17/2024 1 1 Specialty Diagnoses / Procedures Referred By Contac t Referred To Contact Gastroenterology Diagnoses Gastroesophageal reflux disease, unspecified whether esophagitis present Rosmery Cisneros MD [address] [place] [id number] Referral ID Status Reason Start Date Expiration Date Visits Requested Visits Authorized [id number] Authorized Specialty Services Required 11/18/2023 11/17/2024 1 1 Additional Source Comments INFORMATION SOURCE (unrecogn ized section and content) DATE CREATED AUTHOR AUTHOR'S ORGANIZ ATION 11/04/2022 [facility] DATE CREATED AUTHOR AUTHOR'S ORGANIZ ATION 01/16/2023 [facility] DATE CREATED AUTHOR AUTHOR'S ORGANIZ ATION 08/06/2023 [facility] DATE CREATED AUTHOR AUTHOR'S ORGANIZ ATION 09/11/2023 [facility] DATE CREATED AUTHOR AUTHOR'S ORGANIZ ATION 11/20/2023 [facility] Amb[facility] DATE CREATED AUTHOR AUTHOR'S ORGANIZ ATION 12/16/2023 [facility] Reason for Visit (unrecogniz ed section and content) Specialty Diagnoses / Procedures Referred By Contac t Referred To Contact Primary Care Diagnoses ADHD, predominantly inattentive type Procedures Follow Up In Advanced Primary Care [place] [address] [facility] [address] [place] [address] Referral ID Status Reason Start Date Expiration Date V isits Requested Visits Authorized [id number] Authorized 01/28/2023 07/27/2023 1 1 Reason Comments [...] - PCP - [place] [address] [facility] [address] [place] [address] Referral ID Status Reason Start Date Expiration Date V isits Requested Visits Authorized [id number] Authorized 08/04/2023 01/31/2024 1 1 Care Teams (unrecognized sec tion and content) Telecommunication Engineer Relationship Specialty Start [place] [address] [facility] [address] [place] [address] PCP - General Family Medicine 07/26/23 Telecommunication Engineer Relationship Specialty Start [place] [address] [facility] [address] [place] [address] PCP - [facility] 07/26/23 Telecommunication Engineer Relationship Specialty Start [place] [address] [facility] [address] [place] [address] PCP - General Family [facility] 07/26/23 FOR RECORDS PERTAINING TO PATIENTS [...] BE BASED ON THE PRIMARY CLINICAL RECORDS. [facility]. provides no warranty or guarantee of the accuracy or completeness of information in this document.
--- NOTE | 2024-01-24 08:56 | BI_ITS ---
MAMMOGRAPHY - BILATERAL SCREENING REASON FOR EXAM: Female, 58 years old. Routine annual screening examination. PERTINENT HISTORY: Grandmother with breast cancer. TECHNIQUE: Digital bilateral breast marj (3D mammographic acquisition) in the CC and MLO projections. 2-D mediolateral oblique (MLO) and craniocaudad (CC) views of both breasts were obtained. CAD: Full Field Digital Mammography with Computer Added Detection was performed. COMPARISON: Comparison is made with prior outside examination dated June 05, 2021. FINDINGS: Breast Composition: The breasts are heterogeneously dense, which may obscure small masses. There are no dominant masses or suspicious calcifications. No other significant abnormalities are identified. There has been no significant change since the prior study. BI/SCRN MAMM (CAD)W/MARJ BILAT IMPRESSION: Stable bilateral screening mammogram. Yearly follow-up mammogram recommended. (A) ASSESSMENT CATEGORY: BIRADS Category 1: Negative. A letter regarding these results will be sent to the patient by the facility within 30 days. Approximately 10% of breast cancers are not detected by mammography. A normal mammogram should not delay biopsy of a clinically suspicious abnormality. [id number] Electronically Signed: Valdemar Dodd MD at 11:17 EDT ,
== END | disposition home or self-care (01) ==
LOC: CT 08:01
PROVIDERS: PCP Nurse Practitioner Family; Referring Provider Nurse Practitioner Family; Visit Provider Nurse Practitioner Family
DX: Z12.31 Encounter for screening mammogram for malignant neoplasm of breast (principal); R41.3 Other amnesia; Z87.820 Personal history of traumatic brain injury; R63.4 Abnormal weight loss
CPT/HCPCS: 70450; 77063; 77067

== ENCOUNTER → 2024-05-24 | Outpatient (CLI) | payer MEDICAID, SELFPAY ==
--- NOTE | 2024-05-24 12:45 | RAD_ITS ---
STUDY: X-RAY - CERVICAL SPINE REASON FOR EXAM: Female, 58 years old. LOW BACK PAIN TECHNIQUE: 5 view(s) of the cervical spine were obtained. COMPARISON: None FINDINGS: Normal anterior atlantoaxial articulation. Normal odontoid process. Normal cervical lordosis. 2 mm retrolisthesis of C4 on C5, C5 on C6 and C6 on C7. There is multi-level endplate spondylosis. There is multi-level degenerative disc disease with multilevel disc space narrowing. There is multi-level osseous foraminal stenosis. The soft tissue structures are unremarkable. RAD/Cerv Spine 2 or 3 Views IMPRESSION: Degenerative disc disease lower cervical spine with retrolisthesis of C4 on C5 C5 on C6 and C6 on C7. MRI may be useful. Electronically Signed: Dexter Millard MD at 18:11 EDT ,
--- NOTE | 2024-05-24 12:58 | RAD_ITS ---
STUDY: X-RAY - LUMBAR SPINE REASON FOR EXAM: Female, 58 years old. LOW BACK PAIN TECHNIQUE: 3 view(s) of the lumbar spine were obtained. COMPARISON: None FINDINGS: Normal lumbar lordosis. Mild levoscoliosis centered at L1. There is a normal alignment of the vertebrae. Normal vertebral bodies and endplates. Normal disc space heights. There is multilevel facet hypertrophy in the lower lumbar spine. The soft tissue structures are unremarkable. RAD/Lumbar Spine 2 or 3 Views IMPRESSION: Mild levoscoliosis with degenerative disc disease. MRI may be useful. Electronically Signed: Dexter Millard MD at 17:28 EDT ,
== END | disposition home or self-care (01) ==
LOC: LAB 12:31
PROVIDERS: PCP Nurse Practitioner Family; Referring Provider Nurse Practitioner Family; Visit Provider Nurse Practitioner Family
DX: M54.50 Low back pain, unspecified (principal); M54.2 Cervicalgia
CPT/HCPCS: 72040; 72100

== ENCOUNTER → 2024-06-22 | Outpatient (CLI) | payer MEDICAID, SELFPAY ==
--- NOTE | 2024-06-22 08:10 | MRI_ITS ---
EXAM: MR HEAD WITHOUT INTRAVENOUS CONTRAST CLINICAL INDICATION: DYSPHAGIA, CHRONIC MIGRAINE, TINNITUS, DIZZY TECHNIQUE: Multiplanar and multisequence MR images of the brain were obtained without intravenous contrast. Dedicated thin slice sequences through the internal auditory canals/cerebellopontine angles are performed as well. COMPARISON: Head CT from 01/24/2024. FINDINGS: BRAIN AND EXTRA-AXIAL SPACES: Unremarkable. No intra- or extra-axial hemorrhage. No evidence of acute infarct. No intracranial mass or mass effect. There is preservation of the henry/white matter interface. Posterior fossa structures are unremarkable. Ventricles are appropriate for age. No hydrocephalus. Basal cisterns are patent. SELLA: Unremarkable. Normal sella turcica, pituitary gland, infundibular stalk, optic chiasm and hypothalamus. AUDITORY SYSTEM: Unremarkable. The internal auditory canals are patent. BONES/JOINTS: Unremarkable. No discrete lytic or blastic abnormalities. SINUSES: Unremarkable as visualized. Clear. MASTOID AIR CELLS: Unremarkable as visualized. Clear. ORBITS: Unremarkable as visualized. Both globes, extraocular muscles, optic nerves and retrobulbar fat appear unremarkable. VASCULATURE: Unremarkable as visualized. Normal flow voids in the major intracranial circulation. MRI/Brain without Contrast IMPRESSION: Negative MRI brain/IACs without intravenous contrast. Electronically Signed: Perfecto Salas MD at 10:54 EDT ,
== END | disposition home or self-care (01) ==
LOC: MRI 07:53
PROVIDERS: PCP Nurse Practitioner Family; Referring Provider Psychiatry & Neurology Neurology; Visit Provider Psychiatry & Neurology Neurology
DX: F51.02 Adjustment insomnia (principal); R41.3 Other amnesia; G43.719 Chronic migraine without aura, intractable, without status migrainosus; F43.9 Reaction to severe stress, unspecified; R13.10 Dysphagia, unspecified
CPT/HCPCS: 70551